=== PATIENT | female | born 1960 | race Caucasian/White ===

== ENCOUNTER 2021-07-19 12:57 | Outpatient (REF) | payer OTHER, SELFPAY ==
--- NOTE | ~2021-07-19 | MR_ITS ---
EXAMINATION: MR OF THE BRAIN WITHOUT CONTRAST CLINICAL INFORMATION: 61-year-old with MS. COMPARISON: 10/04/2017 MRI. TECHNIQUE: Multiplanar multisequence MR imaging of the brain was done without IV contrast. FINDINGS: Brain Volume: Mild diffuse generalized brain parenchymal volume loss similar in appearance to the previous study within the limitations of a qualitative assessment. 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 Brain and Meninges: DWI sequence demonstrates no restricted diffusion. Specifically, there is no evidence for acute or subacute cerebral ischemia or acute demyelination. Redemonstrated are multiple T2 hyperintense white matter lesions in the subcortical and deeper white matter of both cerebral hemispheres which are stable in appearance from previous exam. There is a 3 mm T2 hyperintense subcortical right frontal white matter lesion which is new and there are also small sub-3 mm right subcortical parietal and left corpus callosal white matter lesions which has developed since the previous exam. Confluent T2 hyperintensity in the deep periventricular white matter adjacent to the frontal horns and bodies of the lateral ventricles has progressed. No posterior fossa lesions are identified. No evidence for hemorrhage, hemosiderin staining or abnormal mineral deposition and no extra-axial fluid collections, space-occupying process or mass effect. Ventricles and Subarachnoid Spaces: The ventricular system and subarachnoid spaces are similar to the previous exam without hydrocephalus. Orbital Structures: The visualized orbital structures are grossly unremarkable within the limitations of the study. Vascular: Signal voids are noted in the visualized major intracranial vessels. Sinuses and Osseous Structures: Osseous marrow signal intensity appears grossly unremarkable. There is a 2.5 cm retention cyst along the floor of the left maxillary sinus stable in appearance. MR/MR head/brain wo con IMPRESSION: 1. Numerous T2 hyperintense white matter lesions in the cerebral hemispheres bilaterally with a few new lesions since the previous exam and progression of the periventricular confluent T2 hyperintensity since previous study. No restricted diffusion is seen. 2. Mild generalized diffuse brain parenchymal volume loss similar to the previous exam without hydrocephalus.
== END 2021-07-19 12:58 | disposition home or self-care (01) ==
LOC: HO.MRI 12:57
PROVIDERS: PCP Internal Medicine; Visit Provider Psychiatry & Neurology Neurology
DX: G35 Multiple sclerosis (principal)
CPT/HCPCS: 70551

== ENCOUNTER 2021-07-27 15:26 | Outpatient (REF) | payer OTHER, SELFPAY ==
[2021-07-27 16:03] LABS: MANUAL DIFF FLAG NO
[2021-07-27 16:53] LABS: Basophils Absolute Auto 0.1 X10*3/uL (0.0-0.2); Basophils Percent Auto 0.6 % (0-2); Eosinophils Absolute Auto 0.3 X10*3/uL (0.0-0.4); Eosinophils Percent Auto 2.6 % (0-4); Hematocrit 37.1 % (37.0-47.0); Imm Gran Abs Auto 0.05 X10*3/uL (0.00-0.03); Imm Gran Pct Auto 0.4 % (0.0-0.4); Lymphocytes Absolute Auto 1.6 X10*3/uL (1.2-4.9); Lymphocytes Percent Auto 12.4 % (20-40); Mean Corpuscular HGB Conc 32.3 g/dl (31.0-35.0); Mean Corpuscular Hemoglobin 28.3 pg (27.0-33.0); Mean Corpuscular Volume 87.5 fL (80.0-98.0); Mean Platelet Volume 12.4 fL (9.4-12.3); Monocytes Absolute Auto 0.6 X10*3/uL (0.1-1.2); Monocytes Percent Auto 4.9 % (2-11); Neutrophils Absolute Auto 10.1 x10*3/uL (2.0-8.3); Neutrophils Percent Auto 79.1 % (45-73); Platelet Count 339 X10*3/uL (160-400); Red Blood Count 4.24 X10*6/uL (4.20-5.50); Red Cell Distribution Width 13.1 % (11.0-16.0); White Blood Count 12.8 X10*3/uL (4.8-10.8)
[2021-07-27 17:18] LABS: Alanine Aminotransferase 12 U/L (0-31); Albumin Level 3.8 g/dL (3.5-5.0); Alkaline Phosphatase 114 U/L (39-117); Anion Gap 13 (12-20); Aspartate Amino Transferase 15 U/L (5-31); Bilirubin Direct < 0.2 mg/dL (0.0-0.5); Bilirubin Total 0.3 mg/dL (0.0-1.0); Blood Urea Nitrogen 17 mg/dL (9-16); Calcium 9.4 mg/dL (8.4-10.2); Carbon Dioxide 25 mmol/L (22-29); Chloride 104 mmol/L (96-108); Estimated Glomerular Filt Rate > 60; Glucose Random 89 mg/dL (60-115); Potassium 4.3 mmol/L (3.3-5.1); Sodium 138 mmol/L (135-145); Total Protein 6.9 g/dL (6.5-8.0)
[2021-07-27 18:18] LABS: Erythrocyte Sedimentation Rate 37 MM/HR (0-20)
[2021-07-28 13:36] LABS: Anti Nuclear Antibody Screen NEGATIVE (NEGATIVE)
[2021-08-01 01:52] LABS: JCV Antibody POSITIVE; JCV Index Value 2.29
== END 2021-07-27 15:27 | disposition home or self-care (01) ==
LOC: HO.LAB 15:26
PROVIDERS: PCP Internal Medicine; Visit Provider Psychiatry & Neurology Neurology
DX: G35 Multiple sclerosis (principal)
CPT/HCPCS: 36415; 80048; 80076; 85025; 85652; 86038; 86039; 86711

== ENCOUNTER 2021-08-08 12:56 | Outpatient (REF) | payer OTHER, SELFPAY | END 2021-08-08 12:57 | disposition home or self-care (01) | LOC: HO.MDS 12:56 | PROVIDERS: PCP Internal Medicine; Visit Provider Psychiatry & Neurology Neurology | DX: G35 Multiple sclerosis (principal) | CPT/HCPCS: 96365; J2930 ==

== ENCOUNTER 2021-08-09 13:06 | Outpatient (REF) | payer OTHER, SELFPAY | END 2021-08-09 13:07 | disposition home or self-care (01) | LOC: HO.MDS 13:06 | PROVIDERS: PCP Internal Medicine; Visit Provider Psychiatry & Neurology Neurology | DX: G35 Multiple sclerosis (principal) | CPT/HCPCS: 96365; J2930 ==

== ENCOUNTER 2021-08-10 12:41 | Outpatient (REF) | payer OTHER, SELFPAY | END 2021-08-10 12:42 | disposition home or self-care (01) | LOC: HO.MDS 12:41 | PROVIDERS: PCP Internal Medicine; Visit Provider Psychiatry & Neurology Neurology | DX: G35 Multiple sclerosis (principal) | CPT/HCPCS: 96365; J2930 ==

== ENCOUNTER 2021-10-03 11:33 | Outpatient (REF) | payer OTHER, SELFPAY | END 2021-10-03 11:34 | disposition home or self-care (01) | LOC: HO.LAB 11:33 | PROVIDERS: PCP Internal Medicine; Visit Provider Psychiatry & Neurology Neurology | DX: Z13.89 Encounter for screening for other disorder (principal) ==

== ENCOUNTER 2021-10-27 15:58 | Outpatient (REF) | payer OTHER, SELFPAY ==
[2021-10-27 16:07] LABS: MANUAL DIFF FLAG NO
[2021-10-27 16:59] LABS: Basophils Absolute Auto 0.1 X10*3/uL (0.0-0.2); Basophils Percent Auto 0.5 % (0-2); Eosinophils Absolute Auto 1.8 X10*3/uL (0.0-0.4); Eosinophils Percent Auto 18.7 % (0-4); Hematocrit 32.3 % (37.0-47.0); Hemoglobin 10.5 g/dl (12.0-16.0); Imm Gran Abs Auto 0.03 X10*3/uL (0.00-0.03); Imm Gran Pct Auto 0.3 % (0.0-0.4); Lymphocytes Absolute Auto 1.7 X10*3/uL (1.2-4.9); Lymphocytes Percent Auto 17.5 % (20-40); Mean Corpuscular HGB Conc 32.5 g/dl (31.0-35.0); Mean Corpuscular Hemoglobin 29.2 pg (27.0-33.0); Mean Platelet Volume 12.4 fL (9.4-12.3); Monocytes Absolute Auto 0.6 X10*3/uL (0.1-1.2); Monocytes Percent Auto 5.7 % (2-11); Neutrophils Absolute Auto 5.6 x10*3/uL (2.0-8.3); Neutrophils Percent Auto 57.3 % (45-73); Platelet Count 302 X10*3/uL (160-400); Red Blood Count 3.59 X10*6/uL (4.20-5.50); Red Cell Distribution Width 13.8 % (11.0-16.0); White Blood Count 9.8 X10*3/uL (4.8-10.8)
== END 2021-10-27 15:59 | disposition home or self-care (01) ==
LOC: HO.LAB 15:58
PROVIDERS: PCP Internal Medicine; Visit Provider Psychiatry & Neurology Neurology
DX: G35 Multiple sclerosis (principal)
CPT/HCPCS: 36415; 85025

== ENCOUNTER 2022-03-12 16:44 | Outpatient (REF) | payer OTHER, SELFPAY ==
[2022-03-12 16:57] LABS: MANUAL DIFF FLAG NO
[2022-03-12 17:10] LABS: Basophils Absolute Auto 0.1 X10*3/uL (0.0-0.2); Eosinophils Absolute Auto 0.4 X10*3/uL (0.0-0.4); Hematocrit 38.4 % (37.0-47.0); Hemoglobin 12.5 g/dl (12.0-16.0); Imm Gran Abs Auto 0.02 X10*3/uL (0.00-0.03); Imm Gran Pct Auto 0.2 % (0.0-0.4); Lymphocytes Absolute Auto 0.7 X10*3/uL (1.2-4.9); Lymphocytes Percent Auto 7.4 % (20-40); Mean Corpuscular HGB Conc 32.6 g/dl (31.0-35.0); Mean Corpuscular Hemoglobin 28.9 pg (27.0-33.0); Mean Corpuscular Volume 88.9 fL (80.0-98.0); Mean Platelet Volume 12.1 fL (9.4-12.3); Monocytes Absolute Auto 0.6 X10*3/uL (0.1-1.2); Monocytes Percent Auto 7.3 % (2-11); Neutrophils Percent Auto 80.1 % (45-73); Platelet Count 281 X10*3/uL (160-400); Red Blood Count 4.32 X10*6/uL (4.20-5.50); Red Cell Distribution Width 13.4 % (11.0-16.0); White Blood Count 8.7 X10*3/uL (4.8-10.8)
== END 2022-03-12 16:45 | disposition home or self-care (01) ==
LOC: HO.LAB 16:44
PROVIDERS: PCP Internal Medicine; Visit Provider Psychiatry & Neurology Neurology
DX: G35 Multiple sclerosis (principal)
CPT/HCPCS: 36415; 85025

== ENCOUNTER 2022-12-12 15:01 | Outpatient (REF) | payer OTHER, SELFPAY | END 2022-12-12 15:02 | disposition home or self-care (01) | LOC: HO.MDS 15:01 | PROVIDERS: Visit Provider Psychiatry & Neurology Neurology | DX: G35 Multiple sclerosis (principal) | CPT/HCPCS: 96365; J2930 ==

== ENCOUNTER 2022-12-13 15:05 | Outpatient (REF) | payer OTHER, SELFPAY | END 2022-12-13 15:06 | disposition home or self-care (01) | LOC: HO.MDS 15:05 | PROVIDERS: Visit Provider Psychiatry & Neurology Neurology | DX: G35 Multiple sclerosis (principal) | CPT/HCPCS: 96365; J2930 ==

== ENCOUNTER 2022-12-14 15:01 | Outpatient (REF) | payer OTHER, SELFPAY | END 2022-12-14 15:02 | disposition home or self-care (01) | LOC: HO.MDS 15:01 | PROVIDERS: Visit Provider Psychiatry & Neurology Neurology | DX: G35 Multiple sclerosis (principal) | CPT/HCPCS: 96365; J2930 ==

== ENCOUNTER 2023-01-16 08:30 | Emergency (ER) | payer OTHER, SELFPAY ==
[2023-01-16 08:41] VITALS: BP 187/76; PULSE 64; RESP 18; TEMP 36.1; O2SAT 96; BMI 31.6
--- NOTE | 2023-01-16 08:51 | ED_ITS ---
HPI - Headache General Chief Complaint: Headache Stated Complaint: Migraine/Nausea Time Seen by Provider: 01/16/23 08:48 Source: patient, RN notes reviewed and old records reviewed Mode of arrival: ambulatory History of Present Illness HPI Narrative: 62-year-old female with past medical history of MS, chronic migraines followed by Neurology, presenting to the ED complaining of persistent migraine headache x2 months. Patient admits she is followed by Dr. Gracia, has been on and off multiple medications with his assistance, admits currently only takes Motrin/Excedrin without relief, last took Excedrin around 05:00. Reports associated nausea and puffy eyes. Denies vision change/loss, head injury/trauma, vomiting, neck/back pain, numbness/tingling. Denies taking anticoagulation. MD elicited complaint: headache Related Data Previous Rx's Medication Instructions Recorded ondansetron 4 mg disintegrating 4 mg PO Q8H PRN nausea and 01/16/23 tablet vomiting #10 tabs Allergies Allergy/AdvReac Type Severity Reaction Status Date / Time oxycodone Allergy Nausea Verified 01/16/23 08:45 sulfamethoxazole Allergy Hives Verified 01/16/23 08:45 [From Bactrim] trimethoprim [From Bactrim] Allergy Hives Verified 01/16/23 08:45 Review of Systems Review of Systems: Constitutional: No Fever, No Chills, No Fatigue, No Malaise ENT/Mouth: No Ear Pain, No sore throat, No Rhinorrhea, No Swallowing Difficulty Eyes: No Eye Pain, No Swelling, No Redness, No Vision Changes Cardiovascular: No Chest Pain, No SOB, No Edema, No Palpitations Respiratory: No Cough, No Sputum, No Dyspnea Gastrointestinal: No Nausea, No Vomiting, No Diarrhea, No Constipation, No Abdominal pain Musculoskeletal: No joint pain, No Myalgias, No Joint Swelling Skin: No Skin Lesions, No rash Neuro: No Weakness, No Numbness, No Paresthesias, No Loss of Consciousness, + lightheaded, + Headache Yes all other systems are reviewed and are negative Constitutional: Constitutional: Reports as per HPI Neurologic: Denies Abnormal speech present PMFSH Past Medical History Attestation statement: The following information was validated with the patient. Source: old records reviewed Social History Social History Advance Directives: No Physical Exam Vital Signs: Vital Signs: Last Vital Signs Temp 98.3 F 01/16/23 10:53 Pulse 67 01/16/23 10:53 Resp 16 01/16/23 10:53 BP 171/80 H 01/16/23 10:53 Pulse Ox 98 01/16/23 10:53 O2 Del Method Room Air 01/16/23 10:53 BMI result Body Mass Index 31.6 Const: General: cooperative, healthy appearing, no acute distress, alert and awake Orientation/consciousness: patient oriented x3 Limitations: no limitations HEENT: Head: Yes normal to inspection and Yes atraumatic Ears: hearing radames sly normal bilaterally General nose exam: Normal external nose present Face and sinus: Yes normal facial exam Throat: Yes posterior oropharynx normal, Yes tonsils normal, Yes uvula midline, No uvula laterally displaced and No uvular edema Eyes: General: appearance normal, both eyes and all related structures EOM: EOMs intact bilaterally Neck: Neck: Yes normal visual inspection and Yes no meningeal signs Resp: Effort & Inspection: normal respiratory effort and no respiratory distress Auscultation: clear to auscultation bilaterally Cardio: Rate: regular rate Heart sounds: S1 normal heart sound present and S2 normal heart sound present GI: Inspection: Yes normal to inspection Palpation (GI): Soft to palpation, nontender, no guarding and not rigid Skin: Rashes: no rashes Wounds: no wounds Neuro: General: patient oriented x3, gait normal, tone normal, moves all extremities, no meningeal signs, no focal motor deficits and CN's II-XI intact bilaterally Cranial nerves: Yes CN's II-XII intact bilaterally and Yes Bilaterally intact EOM present Cognition (Neuro): normal cognition Speech: No Abnormal speech present Gait exam (Neuro): Normal gait present Motor exam (neuro): 5/5 motor strength present throughout, Pronator motor function not present and no tremor noted Coordination: [id number] test normal Romberg Test: Negative Extrem: General: Yes normal to inspection Course Course Course Narrative: -1026--labs reassuring, no leukocytosis > patient reports minimal symptomatic improvement after Toradol/Reglan and Benadryl, will give magnesium, Solu-Medrol, and Fioricet and re-evaluate -1141--on re-evaluation patient sitting comfortably in stretcher, reports symptomatic improvement, requesting discharge. Admits follow-up with Neurology in February, recommended to call to make an earlier appointment Results discussed with patient including worrisome signs and symptoms and strict return precautions, and when to return to the emergency department. They verbalized understanding and feel safe for discharge at this time. Medications Administered Discontinued Medications Generic Name Dose Route Start Last Admin Trade Name Jailyn PRN Reason Stop Dose Admin Acetaminophen/Butalbital/Caffeine 2 tab 01/16/23 10:42 01/16/23 10:57 Butalb/Acetamin/Caff 50/325/40 Tablet PO 01/16/23 10:43 2 tab ONCE ONE Administration Diphenhydramine HCl 25 mg 01/16/23 09:03 01/16/23 09:27 Diphenhydramine Hcl 50 Mg/Ml Vial IVPUSH 01/16/23 09:04 25 mg ONCE ONE Administration Sodium Chloride 1,000 mls @ 999 mls/hr 01/16/23 09:15 01/16/23 10:46 Ns IV 01/16/23 10:15 Infused .Q1H1M KAITLYN Infusion Magnesium Sulfate 2 gm in 50 mls @ 25 mls/hr 01/16/23 10:42 01/16/23 10:56 Magnesium Sulfate/H2o IV 01/16/23 12:41 25 mls/hr ONCE ONE Administration Ketorolac Tromethamine 15 mg 01/16/23 09:03 01/16/23 09:27 Ketorolac Tromethamine 15 Mg/Ml Vial IVPUSH 01/16/23 09:04 15 mg ONCE ONE Administration Methylprednisolone Sodium Succinate 125 mg 01/16/23 10:42 01/16/23 10:56 Methylprednisolone Sod Succ 125 Mg/2 Ml Vial IVPUSH 01/16/23 10:43 125 mg ONCE ONE Administration Metoclopramide HCl 10 mg 01/16/23 09:03 01/16/23 09:27 Metoclopramide Hcl 10 Mg/2 Ml Vial IVPUSH 01/16/23 09:04 10 mg ONCE ONE Administration Medical Decision Making Medical Decision Making MDM Narrative: 62-year-old female with past medical history of MS, chronic migraines followed by Neurology, presenting to the ED complaining of persistent migraine headache x2 months. On exam hypertensive, NAD, nontoxic appearing, no focal neuro deficits, ambulating with steady gait, non meningeal. Concern for acute on chronic migraine headache. Lower suspicion for CVA/TIA, SAH, cervical dissection, meningitis/encephalitis, mass. Rule out metabolic abnormalities Plan: Labs, UA, IVF, Reglan/Toradol, Benadryl, re-evaluate Please refer to course for remaining clinical decision making, interpretation of labs/imaging results, and discussions with consultants and/or family members. Differential Diagnosis Differential Diagnoses: The differential diagnosis associated with the presentation includes As above Admission/Observation Consideration of admission/observation: Escalation of care including admission/observation considered Lab Data MDM Lab Attestation statement: I reviewed the patient's lab results. 01/16/23 09:20 01/16/23 09:20 Labs: Lab Results 01/16/23 01/16/23 Range/Units 09:20 09:20 WBC 8.5 (4.8-10.8) X10*3/uL RBC 4.41 (4.20-5.50) X10*6/uL Hgb 12.6 (12.0-16.0) g/dl Hct 39.3 (37.0-47.0) % MCV 89.1 (80.0-98.0) fL MCH 28.6 (27.0-33.0) pg MCHC 32.1 (31.0-35.0) g/dl RDW 13.9 (11.0-16.0) % Plt Count 297 (160-400) X10*3/uL MPV 11.9 (9.4-12.3) fL Immature Gran % (Auto) 0.5 H (0.0-0.4) % Neut % (Auto) 77.8 H (45-73) % Lymph % (Auto) 11.5 L (20-40) % [place] % (Auto) 6.0 (2-11) % Eos % (Auto) 3.5 (0-4) % Baso % (Auto) 0.7 (0-2) % Lymph # (Auto) 1.0 L (1.2-4.9) X10*3/uL [place] # (Auto) 0.5 (0.1-1.2) X10*3/uL Eos # (Auto) 0.3 (0.0-0.4) X10*3/uL Baso # (Auto) 0.1 (0.0-0.2) X10*3/uL Abs Immat Gran (auto) 0.04 H (0.00-0.03) X10*3/uL Absolute Neuts (auto) 6.6 (2.0-8.3) x10*3/uL Absolute Nucleated RBC 0.000 (0.0-0.012) X10*3/uL Nucleated RBC % (auto) 0.0 (0.0-0.2) /100WBC Sodium 141 (135-145) mmol/L Potassium 4.0 (3.3-5.1) mmol/L Chloride 107 (96-108) mmol/L Carbon Dioxide 22 (22-29) mmol/L Anion Gap 16 (12-20) BUN 12 (9-16) mg/dL Creatinine 0.78 (0.5-1.4) mg/dL Estim Creat Clear Calc 80.0 Estimated GFR > 60 Random Glucose 86 (60-115) mg/dL Calcium 9.4 (8.4-10.2) mg/dL Magnesium 2.0 (1.6-2.6) mg/dL Total Bilirubin 0.2 (0.0-1.0) mg/dL Direct Bilirubin < 0.2 (0.0-0.5) mg/dL AST 33 H (5-31) U/L ALT 24 (0-31) U/L Alkaline Phosphatase 116 (39-117) U/L Total Protein 7.4 (6.5-8.0) g/dL Albumin 3.9 (3.5-5.0) g/dL Radiology Impression Discussion of test interpretation with radiology: I have reviewed the radiologist's reading. External Record Review External record reviewed: Inpatient record, Office record, Outpatient record, Prior outpatient labs, Prior outpatient radiology, Primary care record and Outside ED record Tests considered The following testing was considered but not selected: As above Prescription Management I considered prescription management with: Pain Medication Chronic Conditions Patient?s care impacted by: Other (MS) Discharge Plan Discharge Clinical Impression: Migraine Patient Disposition: Home, Self-Care Instructions: Migraine Headache (ED) Additional Instructions: Your blood work is reassuring Rest Stay hydrated Continues to take home medications Follow-up with her neurologist, called get a sooner appointment If symptoms persist or worsen, headache becomes unbearable, persistent nausea vomiting return to the ED Zofran as an antinausea medication, take as needed Prescriptions: New ondansetron 4 mg tablet,disintegrating 4 mg PO Q8H PRN (Reason: nausea and vomiting) Qty: 10 0RF Referrals: Jesusita Gracia MD [Physician] - Stand Alone Forms: Work/School Release Interventions: ED Discharge Assessment Last Done: 01/16/23 11:53 Discharge Date/Time: 01/16/23 11:54
[2023-01-16 09:25] LABS: MANUAL DIFF FLAG NO
[2023-01-16 09:27] LABS: Basophils Absolute Auto 0.1 X10*3/uL (0.0-0.2); Basophils Percent Auto 0.7 % (0-2); Eosinophils Absolute Auto 0.3 X10*3/uL (0.0-0.4); Eosinophils Percent Auto 3.5 % (0-4); Hematocrit 39.3 % (37.0-47.0); Hemoglobin 12.6 g/dl (12.0-16.0); Imm Gran Abs Auto 0.04 X10*3/uL (0.00-0.03); Imm Gran Pct Auto 0.5 % (0.0-0.4); Lymphocytes Percent Auto 11.5 % (20-40); Mean Corpuscular HGB Conc 32.1 g/dl (31.0-35.0); Mean Corpuscular Hemoglobin 28.6 pg (27.0-33.0); Mean Corpuscular Volume 89.1 fL (80.0-98.0); Mean Platelet Volume 11.9 fL (9.4-12.3); Monocytes Absolute Auto 0.5 X10*3/uL (0.1-1.2); Neutrophils Absolute Auto 6.6 x10*3/uL (2.0-8.3); Neutrophils Percent Auto 77.8 % (45-73); Platelet Count 297 X10*3/uL (160-400); Red Blood Count 4.41 X10*6/uL (4.20-5.50); Red Cell Distribution Width 13.9 % (11.0-16.0); White Blood Count 8.5 X10*3/uL (4.8-10.8)
[2023-01-16] MEDS: Ketorolac Tromethamine 15 MG/ML VIAL IVPUSH (09:27)
[2023-01-16] MEDS: diphenhydrAMINE HCL 50 MG/ML VIAL 25 MG IVPUSH (09:27)
[2023-01-16] MEDS: 0.9 % Sodium Chloride 1,000 ML 999 ML IV (09:27)
[2023-01-16] MEDS: Metoclopramide HCl 10 MG/2 ML VIAL IVPUSH (09:27)
--- NOTE | 2023-01-16 09:38 | PC.NURSE ---
alert and oriented, respirations even and unlabored. resting quietly in room, complaining of headache over last month. also reporting nausea. iv established, labs drawn and sent. medicated per the aug. ambulated with steady gait to bathroom. fluids running at this time, call coker within reach.
[2023-01-16 09:58] LABS: Alanine Aminotransferase 24 U/L (0-31); Albumin Level 3.9 g/dL (3.5-5.0); Alkaline Phosphatase 116 U/L (39-117); Anion Gap 16 (12-20); Aspartate Amino Transferase 33 U/L (5-31); Bilirubin Direct < 0.2 mg/dL (0.0-0.5); Bilirubin Total 0.2 mg/dL (0.0-1.0); Blood Urea Nitrogen 12 mg/dL (9-16); Calcium 9.4 mg/dL (8.4-10.2); Carbon Dioxide 22 mmol/L (22-29); Chloride 107 mmol/L (96-108); Estimated Glomerular Filt Rate > 60; Glucose Random 86 mg/dL (60-115); Sodium 141 mmol/L (135-145); Total Protein 7.4 g/dL (6.5-8.0)
[2023-01-16 10:53] VITALS: BP 171/80; PULSE 67; RESP 16; TEMP 36.8; O2SAT 98
[2023-01-16] MEDS: methylPREDNISolone Sod Succ 125 MG/2 ML VIAL IVPUSH (10:56)
[2023-01-16] MEDS: Magnesium Sulfate/H2O 2 GM/50 ML PIGGYBACK IV (10:56)
[2023-01-16] MEDS: Butalb/Acetamin/Caff 50/325/40 TABLET 2 TAB PO (10:57)
== END 2023-01-16 11:54 | disposition home or self-care (01) ==
PROVIDERS: Physician Assistant; Emergency Provider Student in an Organized Health Care Education/Training Program; PCP Internal Medicine
DX: G43.909 Migraine, unspecified, not intractable, without status migrainosus (principal); R11.2 Nausea with vomiting, unspecified; Z79.899 Other long term (current) drug therapy
CPT/HCPCS: 36415; 80048; 80076; 83735; 85025; 96361; 96374; 96375; 99284; 99285; J1200; J1885; J2765; J2930; J3475

== ENCOUNTER 2023-10-17 05:17 | Emergency (ER) | payer OTHER, SELFPAY ==
--- NOTE | ~2023-10-17 | XR_ITS ---
EXAMINATION: XR CHEST CLINICAL INFORMATION: Shortness of breath, cough COMPARISON: None available. TECHNIQUE: Frontal view of the chest was obtained. FINDINGS: The lungs are clear with no focal consolidation. No evidence of pneumothorax, pulmonary edema, or pleural effusions. The cardiomediastinal silhouette is unremarkable. No acute osseous findings. XR/XR chest 1V IMPRESSION: No acute cardiopulmonary findings.
[2023-10-17 05:20] VITALS: BP 154/86; PULSE 75; RESP 24; TEMP 36.7; O2SAT 93; BMI 31.6
--- NOTE | 2023-10-17 05:23 | ECG_ITS ---
Test Reason : dyspena Blood Pressure : / mmHG Vent. Rate : 067 BPM Atrial Rate : 067 BPM P-R Int : 142 ms QRS Dur : 074 ms QT Int : 394 ms P-R-T Axes : 041 065 052 degrees QTc Int : 416 ms Normal sinus rhythm Normal ECG No previous ECGs available Referred By: Generic ED Physician Electronically Signed By:Kristian Lezama
[2023-10-17 05:50] LABS: Basophils Percent Auto 0.2 % (0-2); Eosinophils Percent Auto 0.1 % (0-4); Hematocrit 41.2 % (37.0-47.0); Hemoglobin 13.7 g/dl (12.0-16.0); Imm Gran Abs Auto 0.07 X10*3/uL (0.00-0.03); Imm Gran Pct Auto 0.5 % (0.0-0.4); Lymphocytes Absolute Auto 1.2 X10*3/uL (1.2-4.9); Lymphocytes Percent Auto 9.3 % (20-40); MANUAL DIFF FLAG NO; Mean Corpuscular HGB Conc 33.3 g/dl (31.0-35.0); Mean Corpuscular Hemoglobin 29.5 pg (27.0-33.0); Mean Corpuscular Volume 88.8 fL (80.0-98.0); Mean Platelet Volume 11.7 fL (9.4-12.3); Monocytes Absolute Auto 0.6 X10*3/uL (0.1-1.2); Monocytes Percent Auto 4.2 % (2-11); Neutrophils Absolute Auto 11.3 x10*3/uL (2.0-8.3); Neutrophils Percent Auto 85.7 % (45-73); Platelet Count 304 X10*3/uL (160-400); Red Blood Count 4.64 X10*6/uL (4.20-5.50); Red Cell Distribution Width 13.1 % (11.0-16.0); White Blood Count 13.2 X10*3/uL (4.8-10.8)
[2023-10-17 06:03] LABS: IDNOW Serial# 08D9AD1C; Influenza A Negative (Negative); Influenza B2 Negative (Negative)
[2023-10-17 06:04] LABS: COVID-19 Test Negative (Negative); IDNOW Serial# 152EDE1D
[2023-10-17 06:09] LABS: Anion Gap 15 (12-20); Blood Urea Nitrogen 24 mg/dL (9-16); Calcium 9.6 mg/dL (8.4-10.2); Carbon Dioxide 23 mmol/L (22-29); Chloride 105 mmol/L (96-108); Creatinine Clr Calc Pharmacy 73.3; Estimated Glomerular Filt Rate > 60; Glucose Random 104 mg/dL (60-115); Potassium 4.5 mmol/L (3.3-5.1); Sodium 138 mmol/L (135-145)
[2023-10-17 06:10] LABS: Troponin-I High Sensitivity 2.9 ng/L (<3.5-17.0)
[2023-10-17 06:22] VITALS: BP 171/65; PULSE 63; RESP 18; TEMP 36.6; O2SAT 94
--- NOTE | 2023-10-17 06:24 | PC.NURSE ---
a&ox4. vss and up to date aside from being slightly hypertensive. pt presents to ED w/ UR sx x last . hx asthma/copd. RA baseline w/o difficulty. pt states using inhalers/nebulizers at home w/o relief. recently prescribed prednisone at urgent care. pt states sx have since then increased. pt c/o pain w/ inspiration as well as with coughing. rating it a 3/10. audible wheezing noted. no sob/wob noted. pt positioned upright to promote patent airway. pt able to speak in full clear sentences w/o difficulty. pt waiting for chest xray results as well as to see an ED provider. plan of care ongoing. call coker placed within reach.
--- NOTE | 2023-10-17 07:42 | ED_ITS ---
HPI - General Adult General Chief complaint: Dyspnea Stated complaint: Sob Time Seen by Provider: 10/17/23 07:31 History of Present Illness HPI narrative: The patient is a 63-year-old woman with a history of COPD and asthma who says that she has been feeling unwell for about 8 days. Three days ago she went to an urgent care center and was placed on a course of prednisone. Took 40 mg of prednisone daily for the last 3 days but continues to feel short of breath and wheezy. She has not had a fever although she has felt hot. She has been using her inhalers and her nebulizer machine at home without significant improvement. She thinks she is still wheezing and short of breath. She decided to come to the emergency room because of her persistent symptoms this morning. She has not yet taken her morning dose of prednisone. No nausea or vomiting. No pain or swelling in her legs Related Data Previous Rx's ?Medication ?Instructions ?Recorded ondansetron 4 mg disintegrating 4 mg PO Q8H PRN nausea and 01/16/23 tablet vomiting #10 tabs azithromycin 250 mg tablet 250 mg PO DAILY 4 days #4 tabs 10/17/23 prednisone 20 mg tablet 20 mg PO DAILY #12 tabs 10/17/23 Allergies Allergy/AdvReac Type Severity Reaction Status Date / Time oxycodone Allergy Nausea Verified 10/17/23 05:22 sulfamethoxazole Allergy Hives Verified 10/17/23 05:22 [From Bactrim] trimethoprim [From Bactrim] Allergy Hives Verified 10/17/23 05:22 Review of Systems 2 Review of Systems: Yes all other systems are reviewed and are negative [facility] Social History Social History Smoked in Last 30 Days: No Use of substances other than those prescribed or required for medical reasons: No Advance Directives: No Advance Directives Information Provided: Yes Do you have a plan to hurt others: No Plan Patient : No Physical Exam ED Vital Signs: Vital Signs - 24 hr 10/17/23 05:20 10/17/23 06:22 10/17/23 08:17 Temperature 98.0 F 97.9 F Pulse Rate 75 63 65 Respiratory Rate 24 H 18 20 Blood Pressure 154/86 H 171/65 H 152/81 H Pulse Oximetry 93 94 96 Oxygen Delivery Method Room Air Room Air Room Air BMI result Body Mass Index 31.6 Const Other: The patient is awake, alert, pleasant, cooperative. She does not appear in obvious acute distress HENMT Other: Face is symmetrical, mucous membranes moist. Eyes Other: Pupils are round equal, conjunctivae are clear Neck Other: No JVD Resp Other: Inspiratory and expiratory wheezes bilaterally. No gross increased work of breathing Cardio Rate: regular rate Rhythm: regular rhythm Heart sounds: S1 normal heart sound present and S2 normal heart sound present GI Other: Abdomen is soft and nontender Skin Other: Skin is dry and unremarkable. Neuro Other: Awake, alert, pleasant, cooperative. Nontoxic demeanor. Normal mental status. Speech is clear. Face symmetrical. Moving her extremities normally. Grossly neurologically intact. Extrem Other: No calf swelling or tenderness. No pitting edema. No asymmetry Medications Administered Discontinued Medications Generic Name Dose Route Start Last Admin Trade Name Freq PRN Reason Stop Dose Admin Azithromycin 500 mg 10/17/23 07:41 10/17/23 08:14 Azithromycin 500 Mg Tablet PO 10/17/23 07:42 500 mg ONCE ONE Administration Albuterol Sulfate 2.5 mg/ 0 mg 10/17/23 08:06 10/17/23 08:12 Albuterol/Ipratropium 3 ml INHALE 10/17/23 08:07 1 dose ONCE ONE Administration Prednisone 60 mg 10/17/23 07:41 10/17/23 08:14 Prednisone 20 Mg Tablet PO 10/17/23 07:42 60 mg ONCE ONE Administration Medical Decision Making Medical Decision Making [facility] Narrative: The patient is a 63-year-old woman with a history of asthma and COPD who has been having trouble breathing for the last 8 days. She has had associated cough and wheezing. She has been on 40 mg of prednisone for 3 days without significant improvement. Here her her chest x-ray is clear. She has wheezes on exam. She has no edema on her legs. No calf swelling or tenderness or asymmetry. No signs of DVT. She was treated with 5 mg of albuterol and 0.5 mg of ipratropium with improvement in her symptoms. She will be discharged on a course of 3 days of 60 mg of prednisone and 3 days of 40 mg of prednisone as well as a prescription to finish the course of azithromycin. Lab Data 10/17/23 05:43 10/17/23 05:43 Labs: Lab Results 10/17/23 Range/Units 05:43 WBC 13.2 H (4.8-10.8) X10*3/uL RBC 4.64 (4.20-5.50) X10*6/uL Hgb 13.7 (12.0-16.0) g/dl Hct 41.2 (37.0-47.0) % MCV 88.8 (80.0-98.0) fL MCH 29.5 (27.0-33.0) pg MCHC 33.3 (31.0-35.0) g/dl RDW 13.1 (11.0-16.0) % Plt Count 304 (160-400) X10*3/uL MPV 11.7 (9.4-12.3) fL Immature Gran % (Auto) 0.5 H (0.0-0.4) % Neut % (Auto) 85.7 H (45-73) % Lymph % (Auto) 9.3 L (20-40) % [place] % (Auto) 4.2 (2-11) % Eos % (Auto) 0.1 (0-4) % Baso % (Auto) 0.2 (0-2) % Lymph # (Auto) 1.2 (1.2-4.9) X10*3/uL [place] # (Auto) 0.6 (0.1-1.2) X10*3/uL Eos # (Auto) 0.0 (0.0-0.4) X10*3/uL Baso # (Auto) 0.0 (0.0-0.2) X10*3/uL Abs Immat Gran (auto) 0.07 H (0.00-0.03) X10*3/uL Absolute Neuts (auto) 11.3 H (2.0-8.3) x10*3/uL Absolute Nucleated RBC 0.000 (0.0-0.012) X10*3/uL Nucleated RBC % (auto) 0.0 (0.0-0.2) /100WBC Sodium 138 (135-145) mmol/L Potassium 4.5 (3.3-5.1) mmol/L Chloride 105 (96-108) mmol/L Carbon Dioxide 23 (22-29) mmol/L Anion Gap 15 (12-20) BUN 24 H (9-16) mg/dL Creatinine 0.84 (0.5-1.4) mg/dL Estim Creat Clear Calc 73.3 Estimated GFR > 60 Random Glucose 104 (60-115) mg/dL Calcium 9.6 (8.4-10.2) mg/dL Troponin I High Sens 2.9 (<3.5-17.0) ng/L B-Natriuretic Peptide 175 H (<100) pg/mL COVID-19 ([facility]ORGAN) Negative (Negative) COVID-19 Clin Com See Note Influenza Type A (ISI) Negative (Negative) Influenza Type B (ISI) Negative (Negative) Influenza A & B Note See Note Independent Interpretation I performed an independent interpretation of an: EKG Interpretation: EKG at 05:32 shows normal sinus rhythm at 67 beats per minute. Unremarkable EKG Discharge Plan Discharge Clinical Impression: Acute exacerbation of chronic obstructive airways disease Patient Disposition: Home, Self-Care Additional Instructions: Please continue to use your albuterol nebulizers and inhalers at home every 4 hours as needed. I have sent prescriptions for the antibiotic azithromycin to your pharmacy and for additional prednisone to your pharmacy. Next dose of both of these medications is tomorrow. Please contact your regular doctor's office to make a prompt follow-up appointment to discuss how you are doing. Return to the emergency room if significantly worse. Prescriptions: New azithromycin 250 mg tablet 250 mg PO DAILY 4 Days Qty: 4 0RF Rx Instructions: start on day 2 of therapy prednisone 20 mg tablet 20 mg PO DAILY Qty: 12 0RF Rx Instructions: Take 3 tablets by mouth daily for 2 days then 2 tablets daily by mouth for 3 days. No Action ondansetron 4 mg tablet,disintegrating 4 mg PO Q8H PRN (Reason: nausea and vomiting) Qty: 10 0RF Referrals: Pablo Resendiz III, MD [Primary Care Provider] - (Asthma/COPD) Stand Alone Forms: Work/School Release Print Language: Icelandic
[2023-10-17] MEDS: Albuterol Sulfate 2.5 MG, Albuterol/Iprat 2.5/0.5MG 3 ML 3 ML INHALE (08:12)
[2023-10-17] MEDS: Azithromycin 500 MG TABLET PO (08:14)
[2023-10-17] MEDS: predniSONE 20 MG TABLET 60 MG PO (08:14)
[2023-10-17 08:17] VITALS: BP 152/81; PULSE 65; RESP 20; O2SAT 96
--- NOTE | 2023-10-17 08:20 | PC.NURSE ---
pt is alert and oriented, skin pwd, respirations even and unlabored, ls slight wheezing on the right lower lobe, denies pain at this time, vs stable
[2023-10-17 08:24] LABS: B Type Natriuretic Peptide 175 pg/mL (<100)
[2023-10-17 09:47] VITALS: BP 177/91; PULSE 74; RESP 18; TEMP -17.7; TEMP 0; O2SAT 95
== END 2023-10-17 09:49 | disposition home or self-care (01) ==
PROVIDERS: Emergency Provider Emergency Medicine; PCP Internal Medicine
DX: J44.1 Chronic obstructive pulmonary disease with (acute) exacerbation (principal); R06.02 Shortness of breath; Z11.52 Encounter for screening for COVID-19; Z79.899 Other long term (current) drug therapy
CPT/HCPCS: 36415; 71045; 80048; 83880; 84484; 85025; 87502; 87635; 93005; 99284; 99285

== ENCOUNTER → 2023-10-17 05:23 | Outpatient (BNV) | payer OTHER, SELFPAY | PROVIDERS: Emergency Provider Emergency Medicine; PCP Internal Medicine; Visit Provider Internal Medicine Cardiovascular Disease | DX: R06.00 Dyspnea, unspecified (principal) | CPT/HCPCS: 93010 ==

== ENCOUNTER 2024-07-29 18:50 | Outpatient (REF) | payer MEDICARE, MEDICAID, SELFPAY ==
--- NOTE | ~2024-07-29 | MR_ITS ---
CLINICAL HISTORY: MS MR Brain without gadolinium Comparison: MR - MRI [facility] [id number] - 10/04/17 10:01 EDT Findings: No restricted diffusion. Mild diffuse cerebral volume loss. Mild degree of patchy high FLAIR signal within the periventricular and subcortical white matter. No intracranial mass or hemorrhage. No midline shift. No hydrocephalus. Vascular flow voids are intact. The orbits are normal. The sinuses and mastoid air cells are clear. No focal bone lesion. IMPRESSION: Unremarkable brain MRI. This document has been electronically signed by: Ryan Sparks MD on 07/30/2024 14:36:18
--- OUTSIDE RECORDS SUMMARY | 2024-07-29 18:52 | XMS_ITS | Clinical Summary ---
[facility] Address [address] [id number] Care Team Providers Care Race Steward Name Role Phone Heraclio Gold MD Primary Care Provider [phone] Allergies Active Allergy Reactions Criticality Noted Date Comments Sulfamethoxazole-Trimethoprim Other (See Comments) High 08/11/2013 Medications Medication Sig Dispensed Refills Start Date End Date Status FLUoxetine (PROzac) 20 MG capsule Take 20 mg by mouth 3 (three) times a day. 0 11/22/2019 Active estradiol (ESTRACE) 2 MG tablet TAKE 1 TABLET (2 MG) BY ORAL ROUTE ONCE DAILY FOR 30 DAYS FOR 30 DAYS 0 01/11/2020 Active propranolol (INDERAL) 60 MG tablet Take 60 mg by mouth 3 (three) times a day. 0 Active Family History Medical History Relation Name Comments Hyperlipidemia Father Hypertension Father Relation Name Status Comments Father Social History Tobacco Use Types Packs/Day Years Used Date Smoking Tobacco: Former Cigarettes Q uit: 2006 Smokeless Tobacco: Never Alcohol Use Standard Drinks/Week Comments No 0 (1 standard drink = 0.6 oz pur e alcohol) Sex and Gender Information Value Date Recorded Sex Assigned at Not on file Gender Identity Not on file Sexual Orientation Not on file Job Start Date Occupation Industry Not on file Not on file Not on file Last Filed Vital Signs Vital Sign Reading Time Taken Comments Blood Pressure - - Pulse - - Temperature - - Respiratory Rate - - Oxygen Saturation - - Inhaled Oxygen Concentration - - Weight 86.2 kg (190 lb) 01/18/2020 2:08 PM EDT Height 165.1 cm (5' 5 ) 01/18/2020 2:08 PM EDT Body Mass Index 31.62 01/18/2020 2:08 PM EDT Plan of Treatment Health Maintenance Due Date Last Done Comments Hepatitis C Screening 1960 COVID-19 Vaccine (#1) 1959 Depression Screening 1971 BMI Counseling 1977 Preventative Health Evaluation 1977 DTap / Tdap / Td (1 - Tdap) 1978 Cervical Cancer Screening (Pap Smear) 02/18/1980 Colon Cancer Screening (Colonoscopy) 02/18/2004 Breast Cancer Screening (Mammogram) 2009 Shingrix-Zoster Vaccine (1 of 2) 2009 Influenza Vaccine (#1) 2024 8, 03/29/2014, 03/24/2010, Additional history exists Fall Risk Assessment 02/18/2024 Osteoporosis Screening (DEXA Scan) 02/18/2024 Pneumococcal Vaccine (2 of 2 - PCV) 02/18/2024 12/04/2012 RSV Adult > 60+ Yrs or (1 - 1-dose 75+ series) 2034 Pneumococcal Vaccine Aged Out 12/04/2012 No long er eligible based on patient's age to complete this topic Hepatitis B Vaccines Aged Out No long er eligible based on patient's age to complete this topic RSV Ped < 20 months Aged Out No longe r eligible based on patient's age to complete this topic Care Teams Race Steward Relationship Specialty Start Date End Date Heraclio Gold MD [address] [place] [address] [phone] PCP - General Internal Medicine 07/07/18
--- OUTSIDE RECORDS SUMMARY | 2024-07-29 18:52 | XMS_ITS | Clinical Summary ---
Author Organization [facility] Address [address] [place] [address] Phone Care Team Providers Care Salmon Troll Fisher Name Role Phone Pablo Resendiz MD Primary Care Provider [phone] Allergies Active Allergy Reactions Criticality Noted Date Comments Cephalexin Monohydrate 09/06/2005 Lisinopril 08/01/2021 Throat Clearing Oxycodone Hcl Itching,Nausea And Vomiting Medium 04/03/2007 [facility] 08/11/2013 Medications albuterol 2.5 mg /3 mL (0.083 %) nebulizer solution Take 1 Vial by nebulization every 4 hours as needed for Wheezing or Shortness of Breath (EMERGENCY USE ONLY). 06/13/19 24 Active albuterol HFA (Ventolin HFA) 90 mcg/actuation inhaler INHALE 2 PUFFS INTO THE LUNGS EVERY 4 HOURS NEEDED FOR COUGH OR WHEEZING. 01/30/20 24 Active aluminum chloride (Drysol Dab-O-Matic) 20 % external solution APPLY TOPICALLY TO AFFECTED AREA EVERY DAY 10/17/19 24 Active butalbital-ac etaminophen-c affeine (FIORICET, ESGIC) 50-325-40 mg per tablet TAKE 2 TABLETS BY MOUTH EVERY DAY NEEDED FOR HEADACHE 01/12/20 23 Active colestipoL (COLESTID) 1 gram tablet TAKE 1 TABLET BY MOUTH FOUR TIMES A DAY 03/06/20 24 Active estradioL (ESTRACE) 2 mg tablet Take 2 mg by mouth daily. Active hyoscyamine (ANASPAZ,LEVS IN) 0.125 mg tablet TAKE 1 TABLET BY MOUTH 3 TIMES DAILY NEEDED FOR CRAMPING OR DIARRHEA 02/18/20 24 Active lidocaine (LIDODERM) 5 % patch APPLY TOPICALLY TO AFFECTED AREA EVERY DAY REMOVE BEFORE BEDTIME 05/22/20 23 Active montelukast (SINGULAIR) 10 mg tablet Take 1 Tablet by mouth at bedtime. 03/09/20 24 Active pregabalin (LYRICA) 150 mg capsule TAKE 1 CAPSULE BY MOUTH TWICE A DAY 11/18/19 24 Active propranoloL (INDERAL) 20 mg tablet TAKE 1 TABLET BY MOUTH TWICE A DAY FOR 30 DAYS 11/18/19 23 Active SUMAtriptan (IMITREX) 50 mg tablet TAKE 1 TABLET AT LEAST 2 HOURS BETWEEN DOSES NEEDED ORALLY ONCE A DAY 30 DAYS 06/05/20 23 Active topiramate (TOPAMAX) 50 mg tablet Take 1 tablet (50 mg total) by mouth at bedtime. 03/14/20 23 Active amitriptyline (ELAVIL) 25 mg tablet Take 1 tablet (25 mg total) by mouth at bedtime. 30 each 5 05/24/20 24 025 Active ALPRAZolam (XANAX) 1 mg tablet Take 1 tablet (1 mg total) by mouth at bedtime as needed for anxiety. 28 tablet 06/26/19 25 Active tiZANidine (ZANAFLEX) 4 mg tablet TAKE 1 TABLET BY MOUTH AT BEDTIME NEEDED FOR MUSCLE SPASMS. 90 tablet 1 07/15/19 25 Active hydroCHLOROth iazide (MICROZIDE) 12.5 mg capsule TAKE 1 CAPSULE BY MOUTH EVERY DAY 90 capsule 1 07/20/19 25 Active zolpidem (AMBIEN) 5 mg tablet Take 1 tablet (5 mg total) by mouth at bedtime. at bedtime for sleep Max Daily Amount: 5 mg 28 tablet 07/24/19 25 Active estradioL (ESTRACE) 0.01 % (0.1 mg/gram) vaginal cream APPLY 5 ML PER VAGINA DIRECTED 10/30/19 23 025 Discontinued(D iscontinued by another clinician) hydroCHLOROth iazide (MICROZIDE) 12.5 mg capsule TAKE 1 CAPSULE BY MOUTH EVERY DAY 02/18/20 24 025 Discontinued oxyBUTYnin XL (DITROPAN-XL) 10 mg 24 hr tablet TAKE 1 TABLET BY MOUTH EVERY NIGHT AT BEDTIME 11/18/19 025 Discontinued(D iscontinued by another clinician) sertraline (ZOLOFT) 50 mg tablet TAKE 1 TABLET BY MOUTH AT BEDTIME 03/21/20 025 Discontinued(D iscontinued by another clinician) tiZANidine (ZANAFLEX) 4 mg tablet Take 1 Tablet by mouth at bedtime as needed for Muscle spasms. 10/17/19 24 025 Discontinued zolpidem (AMBIEN) 5 mg tablet TAKE 1 TABLET BY MOUTH AT BEDTIME NEEDED FOR SLEEP. 28 tablet 06/23/19 25 025 Discontinued(R eorder) zolpidem (AMBIEN) 5 mg tablet Take 1 tablet (5 mg total) by mouth at bedtime. at bedtime for sleep Max Daily Amount: 5 mg 28 tablet 07/24/19 25 025 Discontinued(R eorder) Active Problems Problem Noted Date Diagnosed Date Hemorrhoids 05/20/2024 Anxiety 07/13/2021 Panic disorder 07/13/2021 Overview (05/20/2024): Following with neurology. Chronic neck pain 03/06/2021 Overview (05/20/2024): Follows with [facility]. Lumbar radiculopathy 03/06/2021 Overview (05/20/2024): Follows with [facility]. Hypertension 08/17/2020 Obesity (BMI 30.0-34.9) 08/17/2020 Subacromial bursitis of right shoulder joint 01/2020 Tendinitis of right shoulder 03/17/2020 Pulmonary nodules 02/02/2020 Multiple sclerosis 07/07/2019 Overview (05/20/2024): Diagnosed by Dr. Gracia Multiple thyroid nodules 10/14/2018 Overview (05/20/2024): Aspiration benign, reported 10/14/2018 Insomnia 10/07/2014 Overview (05/20/2024): 04/2018 Home Sleep Study did not reveal sleep apnea. Mixed hyperlipidemia 12/24/2012 Other chest pain 08/05/2008 Assessment & Plan (07/17/2024 4:08 PM EST): Patient complains of a nonexertional chest discomfort has 3 out of 5 risk factors for coronary disease we will send her for another stress echocardiogram. It is possible that could be coronary spasm but she would have to have an EKG done while she was having the chest discomfort. I told her if she has prolonged episode of pain to go to the ER so an EKG could be accomplished. Could be esophageal spasm. She has had CAT scans of her chest done for screening for pulmonary nodules with no particular findings. She had a CAT scan of the abdomen done with no particular findings and she is status postcholecystectomy. I told the patient that if her stress test is normal she should discuss whether a GI evaluation for esophageal spasm could be performed. I also did tell her that if she has a prolonged episode of pain to have someone take her to the ER or call 911 so that EKG can be obtained while she is having the pain to make sure that there is no evidence of coronary spasm. Though I have no history or documentation that that is the case here. She does not have any heavy lifting or pushing or pulling to be done during her workday. There is no evidence of costochondritis on exam Renal cyst 03/30/2008 Overview (05/20/2024): complicated left renal cyst, follow-up ultrasound due September 2008 IBS (irritable bowel syndrome) 03/02/2008 Overview (05/20/2024): Constipation predominant. Migraine 03/02/2008 Overview (05/20/2024): Dr. Gracia Asthma-COPD overlap syndrome 10/14/2007 Hemorrhage of gastrointestinal tract 04/03/2007 Overview (05/20/2024): Neg cn to 25 cm 04/03/2007. BE negative 04/17/2007, [facility]. Consider flex sig 2012. IMO update Allergic rhinitis 09/06/2005 Encounters Date Type Department Care Team Description 07/17/2024 3:00 PM EST Office Visit [facility] Cardiology [facility] [address] [place] [address] Leticia Bryan MD Chest pain, unspecified type (Primary Dx); Other chest pain 05/19/2024 Telephone [facility] [address] [place] [address] Pablo Resendiz MD 05/08/2024 Telephone G[facility] - [place] [address] [place] [address] Yg Barrett MD Med Refill from Last 3 Months Immunizations Name Administration Dates Next Due H1N1 Inj Preservative Free 04/15/2009 Influenza Quadravalent, MDCK , 0.5ml, preservative free (Flucelvax) 6mo and older 06/26/2022 Influenza Quadravalent, MDCK , 0.5ml, with preservative (Flucelvax) 6mo and older 03/25/2018 Influenza trivalent, 0.5mL ( Fluad) 65yo and older 03/20/2005 Influenza trivalent, 0.5mL, preservative free (Fluarix; FluLaval; Fluzone) ages 6mo and older (Afluria) 3 years and older 02/22/2021,03/24/2010,03/23/2008 Influenza trivalent, with pr eservative (Fluzone; Afluria) 6mo and older 04/05/2016,04/14/2015,03/29/2014,03/07 Influenza, Unspecified 03/26/2019 Moderna (age 6mo & older) Bi valent, COVID-19, 0.5 mL or 0.25 mL dosage 12/22/2022 Moderna SARS-CoV-2 COVID-19, mRNA, LNP-S, preservative free 07/30/2020,06/28/2020 Pneumococcal conjugate 20 va lent (Prevnar 20, PCV 20) 2mo and older 12/22/2022 Pneumococcal polysaccharide 23 valent (Pneumovax 23) 2yo and older 12/04/2012 RSV, bivalent, protein subun it RSVpreF, 0.5mL, Preservative Free (Arexvy) 60yo and older 06/08/2023 Tdap Tetanus diptheria acell ular pertussis (Boostrix; Adacel) 7yo and older 06/13/2020 Zoster recombinant (Shingrix ) 19yo and older 06/22/2021,02/22/2021 Surgical History Surgery Date Site/Laterality Comments TUBAL LIGATION 1997 PROCEDURE: HISTORICAL TUBAL LIGATION OTHER SURGICAL HISTORY 2002 PROCEDURE: MI HYSTEROSCOPY ENDOMETRIAL ABLATION FLEXIBLE SIGMOIDOSCOPY 04/03/2007 PROCEDURE: MI SIGMOIDOSCOPY FLX DX W/COLLJ SPEC BR/WA IF PFRMD; COMMENT: Neg cn to 25 cm; BE wnl. CHOLECYSTECTOMY 04/30/2008 PROCEDURE: LAPAROSCOPY, CHOLECYSTECTOMY OTHER SURGICAL HISTORY 04/2008 PROCEDURE: HISTORICAL D&C ESOPHAGOGASTRODUODENOSCOPY 04/25/2009 PROCEDURE: MI EGD TRANSORAL BIOPSY SINGLE/MULTIPLE; COMMENT: gastritis: Minimal reactive gastropathy, no H. pylori infection. HYSTERECTOMY 08/2010 PROCEDURE: HISTORICAL HYSTERECTOMY; COMMENT: Dr. Woodard MULTIPLE TOOTH EXTRACTIONS PROCEDURE: HISTORICAL DENTAL EXTRACTION COLONOSCOPY 05/03/2020 PROCEDURE: HISTORICAL COLONOSCOPY; COMMENT: Dr. Barrett - internal hemorrhoids noted SHOULDER SURGERY Right PROCEDURE: HISTORICAL SHOULDER SURGERY; COMMENT: x6, prev right humeral fx after fall BLADDER SUSPENSION PROCEDURE: HISTORICAL BLADDER SUSPENSION OTHER SURGICAL HISTORY Left PROCEDURE: MI STAB PHLEBT VARICOSE VEINS 1 XTR > 20 INCS; COMMENT: Dr. Turk Medical History Medical History Date Comments Allergic rhinitis, cause unspecified 09/06/2005 DX:Allergic rhinitis, cause unspecified Unspecified asthma(493.90) 09/06/2005 DX:Un specified asthma(493.90) Hemorrhage of gastrointestin al tract, unspecified 04/03/2007 DX:Hemorrhage of gastrointes tinal tract, unspecified; COMMENT: Neg cn to 25 cm 04/03/2007 ; BE wnl. IBS (irritable bowel syndrome) 03/02/2008 D X:IBS (irritable bowel syndrome) Chronic headache 03/02/2008 DX:Chronic head ache Diarrhea DX:Diarrhea Hemorrhoids DX:Hemorrhoids Epigastric pain DX:Epigastric pa in Nausea DX:Nausea Family History Medical History Relation Name Comments Other: sinus cancer Brother 1 Eliu +smoke r Kidney cancer Brother 2 Obed stage IV renal cell, lung cancer, and leukemia Heart attack Father CABG at 63; HTN , HLD, diabetes, glaucoma Breast cancer Maternal Grandmother bilate ral masectomy; CHF, glaucoma Breast cancer Mother COPD, colitis, cataract, fibromyalgia Heart attack Paternal Grandfather fatal M I Dementia Paternal Grandmother Breast cancer Sister 1 Tessy Stroke Sister 2 Delicia fibromyalgia Alcohol abuse Sister 3 Yari Relation Name Status Comments Brother 1 Eliu Brother 2 Obed Alive Father Maternal Grandfather Maternal Grandmother Mother Alive Paternal Grandfather Paternal Grandmother Sister 1 Tessy Alive Sister 2 Delicia Alive Sister 3 Yari Alive Social History Tobacco Use Types Packs/Day Years Used Date Smoking Tobacco: Former Cigarettes Q uit: 06/10/2007 Smokeless Tobacco: Never Alcohol Use Standard Drinks/Week Comments Not Currently 0 (1 standard drink = 0.6 oz pur e alcohol) Comments Unknown Sex and Gender Information Value Date Recorded Sex Assigned at Not on file Legal Sex Female 1:07 PM EST Gender Identity Not on file Sexual Orientation Not on file Obstetrics History Last Filed Vital Signs Vital Sign Reading Time Taken Comments Blood Pressure 124/70 07/17/2024 4:06 PM EST Pulse 83 07/17/2024 3:01 PM EST Temperature - - Respiratory Rate - - Oxygen Saturation 96% 07/17/2024 3:01 PM EST Inhaled Oxygen Concentration - - Weight 90.3 kg (199 lb) 07/17/2024 3:01 PM EST Height 165.1 cm (5' 5 ) 07/17/2024 3:01 PM EST Body Mass Index 33.12 07/17/2024 3:01 PM EST Plan of Treatment Upcoming Encounters Date Type Department Care Team (Late st Contact Info) Description 08/03/2024 9:30 AM EST Ancillary Procedure [facility] [address] [place] [address] Health Maintenance Due Date Last Done Comments Breast Cancer Screening 1960 Cervical Cancer Screening: Pap Smear 04/03/2021 04/03/2018 Medicare Annual Wellness Visit 05/18/2022 Osteoporosis Screening (Bone Density Screening) 05/18/2022 Social Influencers of Health Screening 05/18/2022 COVID-19 Vaccine ( season) 2024 12/22/2022, 04/12/2021, 07/30/2020, Additional history exists Influenza Vaccine (#1) 2024 , 02/22/2021, 03/26/2019, Additional history exists Depression Screening 12/09/2024 12/10/2023 Falls Risk Assessment 03/09/2025 03/09/2024 Hypertension/CHF/CAD Annual BMP Blood Test 03/09/2025 03/09/2024 Colorectal Cancer Screening: Colonoscopy 05/03/2025 05/03/2020 Cholesterol Screening (Lipid Panel) 11/13/2026 11/13/2021 DTaP,Tdap,and Td Vaccines (2 - Td or Tdap) 06/13/2030 06/13/2020 Hepatitis C Screening Completed 12/24/2012 Zoster Vaccines Completed 06/22/2021, 02/22/2021 Pneumococcal Vaccine: 50+ Years Completed 12/22/2022, 12/04/2012 Pneumococcal Vaccine: Pediatrics (0 to 5 Years) and At-Risk Patients (6 to 64 Years) Completed 12/22/2022, 12/04/2012 RSV Immunization Patients 60+ Years Old Completed 06/08/2023 HIB Vaccines Aged Out No longer eligi ble based on patient's age to complete this topic HPV Vaccines Aged Out No longer eligi ble based on patient's age to complete this topic Hepatitis A Vaccines Aged Out No long er eligible based on patient's age to complete this topic Hepatitis B Vaccines Aged Out No long er eligible based on patient's age to complete this topic IPV Vaccines Aged Out No longer eligi ble based on patient's age to complete this topic MMR Vaccines Aged Out No longer eligi ble based on patient's age to complete this topic Meningococcal ACWY Vaccine Aged Out N o longer eligible based on patient's age to complete this topic Meningococcal B Vacine Aged Out No lo nger eligible based on patient's age to complete this topic RSV Immunization Patients Under 20 months Aged Out No longer eligible based on patient's age to complete this topic Varicella Vaccines Aged Out No longer eligible based on patient's age to complete this topic Procedures Procedure Name Priority Date/Time Associated Diagnosis Comments ECG 12-LEAD Routine 07/17/2024 3:11 PM EST Chest pain, unspecified type FALLS RISK ASSESSMENT Routine 03/09/2024 DEPRESSION SCREENING Routine 12/10/2023 LIPID PANEL Routine 11/13/2021 COLONOSCOPY Routine 05/03/2020 PAP SMEAR Routine 04/03/2018 HEPATITIS C SCREENING Routine 12/24/2012 from Last 3 Months or Most Recently Relevant to Health Maintenance Results * ECG 12 lead (07/17/2024 3:11 PM EST) Ventricular Rate ECG 82 BPM GEMUSE Atrial Rate 82 BPM GEMUSE P-R Interval 166 ms GEMUSE QRS Duration 88 ms GEMUSE Q-T Interval 392 ms GEMUSE QTc 457 ms GEMUSE P Wave Brick 58 degrees GEMUSE R Brick 93 degrees GEMUSE T Brick 39 degrees GEMUSE ECG Interpretation Normal sinus rhythm Rightward axis Cannot rule out Anterior infarct , age undetermined Abnormal ECG When compared with ECG of 21-JAN-2023 23:45, Questionable change in QRS axis Confirmed by Tahir BRYAN, LETICIA ([id number]) on 07/18/2024 6:06:56 PM GEMUSE 07/17/2024 3:11 PM EST 07/18/2024 6:06 PM EST us Leticia Bryan MD ECG ORDERABLES Final Result GEMUSE * Falls Risk Assessment (03/09/2024) Falls Risk Assessment Abstracted Historical Provider HEALTH MAINTENANCE Final Result * Depression Screening (12/10/2023) Depression Screening Abstracted Historical Provider HEALTH MAINTENANCE Final Result * (ABNORMAL) Lipid panel (11/13/2021) [facility] LDL/HDL Ratio 4 0 - 4 Triglycerides 314(A) 0 - 150 mg/dL Cholesterol 201(A) 0 - 200 mg/dL HDL 49 >=40 mg/dL LDL Cholesterol 90 0 - 100 mg/dL Blood Venous blood specimen / Unknown [facility] Provider LAB BLOOD ORDERABLES Sue l Result * Colonoscopy (05/03/2020) [facility] Colonoscopy No Interpretation , Abstracted Anatomical Region Laterality Modality Other [facility] Provider HEALTH MAINTENANCE Final Result * Pap Smear (04/03/2018) [facility] Pap smear No Interpretation , Abstracted [facility] Provider HEALTH MAINTENANCE Final Result * Hepatitis C Screening (12/24/2012) [facility] Hepatitis C Screening Abstracted [facility] Provider HEALTH MAINTENANCE Final Result from Last 3 Months or Most Recently Relevant to Health Maintenance Insurance [place]ICAID - [place] MEDICARE Care Teams Salmon Troll Fisher Relationship Specialty Start Date End Date Pablo Resendiz MD [address] [place] [id number] PCP - General Internal Medicine 07/16/24
--- OUTSIDE RECORDS SUMMARY | 2024-07-29 18:52 | XMS_ITS | Encounter Summary ---
Author Organization [facility] Address [address] [place] [address] Care Team Providers Care Manager Emergency Name Role Phone Pablo Resendiz MD Primary Care Provider [phone] Reason for Referral * Imaging (Routine) - Authorized Specialty Diagnoses / Procedures Referred By Husam savage Referred To Contact Cardiology Diagnoses Chest pain, unspecified type Procedures Stress echocardiogram (TTE) exercise with PRN contrast, bubble, strain, and 3D order panel TN ECHOCARDIOGRAPHY TRANSTHORACIC 2D REST & STRESS W INTERPRETATION/REPORT TN ECHOCARDIOGRAPHY TRANSTHORACIC 2D REST & STRESS W/M-MODE TN DOPPLER ECHO COMPLETE TN ECHOCARDIOGRAPHY DOPPLER COLOR FLOW MAPPING TN CV TMST/BIKE MAX/SUBMAX CONTINUOUS ECG MON/PHARM STRESS SUPVSR ONLY TN TEST STRESS CARDIOVASCULAR TRACING ONLY TN CV STRESS TEST/BIKE CONT ECG MON/PHARM STRESS INTERP & REPORT ONLY Sajan Bryan MD [address] [place] [address] [address] [place] [address] Phone: tel: fax: [facility] Referral ID Status Reason Start Date Expiration Date V isits Requested Visits Authorized [id number] Authorized 07/17/2024 07/17/2025 1 1 Reason for Visit * Reason Comments New Patient Encounter Details Date Type Department Care Team (Late st Contact Info) Description 07/17/2024 3:00 PM EST Office Visit [facility] [address] [place] [id number] Sajan Bryan MD [address] [place] [address] [address] [place] [address] Chest pain, unspecified type (Primary Dx); Other chest pain Social History Tobacco Use Types Packs/Day Years [...] on file Sexual Orientation Not on file documented as of this encounter Last Filed Vital Signs Vital Sign Reading [...] Mass Index 33.12 07/17/2024 3:01 PM EST documented in this encounter Progress Notes * Sajan Bryan MD - 07/17/2024 3:00 PM ESTAssociated Problem(s): Other chest pain Patient complains of a nonexertional chest discomfort [...] for screening for pulmonary nodules with no particularfindings. She had a CAT scan of the [...] is no evidence of costochondritis on exam * Sajan Bryan MD - 07/17/2024 3:00 PM EST Images from the original note were not included. [facility] CONSULT REQUESTED BY: Dr Resendiz PCP: Pablo Resendiz MD HPI: Triny Caro is a 64 y.o. old female with 64-year-old female history of COVID. History of multiple sclerosis followed by neurology. Placed on Xanax by neurology due to anxiety over her MS. New complaints of chest pain. Stress echo 2021 negative. Nuclear stress test 2012 negative history of hypertension on unusual combination of medications including propranolol and hydrochlorothiazide. Patient is a hypertensive with a former smoking history family history of heart disease no diabetesor hyperlipidemia. She complains of a midsternal chest discomfort that comes on without exertion noradiation no nausea vomiting or diaphoresis but it causes her to freeze up can happen multiple times a day can last for a second admitted up to 2 hours it is not exertional in nature History of Present Illness ACTIVE MEDICATIONS: Outpatient Medications Marked as Taking for the 07/17/24 encounter (Office Visit) with Sajan Bryan MD Medication Sig Dispense Refill albuterol 2.5 mg /3 mL (0.083 %) nebulizer solution Take 1 Vial by nebulization every 4 hours as needed for Wheezing or Shortness of Breath (EMERGENCY USE ONLY). albuterol HFA (Ventolin HFA) 90 mcg/actuation inhaler INHALE 2 PUFFS INTO THE LUNGS EVERY 4 HOURS NEEDED FOR COUGH OR WHEEZING. ALPRAZolam (XANAX) 1 mg tablet Take 1 tablet (1 mg total) by mouth at bedtime as needed for anxiety. 28 tablet 0 aluminum chloride (Drysol Dab-O-Matic) 20 % external solution APPLY TOPICALLY TO AFFECTED AREA EVERY DAY amitriptyline (ELAVIL) 25 mg tablet Take 1 tablet (25 mg total) by mouth at bedtime. 30 each 5 nqzqsghkvk-gxagsjdrzrhmo-odglgsyp (FIORICET, ESGIC) 50-325-40 mg per tablet TAKE 2 TABLETS BY MOUTHEVERY DAY NEEDED FOR HEADACHE colestipoL (COLESTID) 1 gram tablet TAKE 1 TABLET BY MOUTH FOUR TIMES A DAY estradioL (ESTRACE) 2 mg tablet Take 2 mg by mouth daily. hydroCHLOROthiazide (MICROZIDE) 12.5 mg capsule TAKE 1 CAPSULE BY MOUTH EVERY DAY hyoscyamine (ANASPAZ,LEVSIN) 0.125 mg tablet TAKE 1 TABLET BY MOUTH 3 TIMES DAILY NEEDED FOR CRAMPING OR DIARRHEA lidocaine (LIDODERM) 5 % patch APPLY TOPICALLY TO AFFECTED AREA EVERY DAY REMOVE BEFORE BEDTIME montelukast (SINGULAIR) 10 mg tablet Take 1 Tablet by mouth at bedtime. pregabalin (LYRICA) 150 mg capsule TAKE 1 CAPSULE BY MOUTH TWICE A DAY propranoloL (INDERAL) 20 mg tablet TAKE 1 TABLET BY MOUTH TWICE A DAY FOR 30 DAYS SUMAtriptan (IMITREX) 50 mg tablet TAKE 1 TABLET AT LEAST 2 HOURS BETWEEN DOSES NEEDED ORALLY ONCE A DAY 30 DAYS tiZANidine (ZANAFLEX) 4 mg tablet TAKE 1 TABLET BY MOUTH AT BEDTIME NEEDED FOR MUSCLE SPASMS. 90tablet 1 topiramate (TOPAMAX) 50 mg tablet Take 1 tablet (50 mg total) by mouth at bedtime. zolpidem (AMBIEN) 5 mg tablet TAKE 1 TABLET BY MOUTH AT BEDTIME NEEDED FOR SLEEP. 28 tablet 0 PAST MEDICAL HISTORY: Patient Active Problem List Diagnosis Allergic rhinitis Anxiety Asthma-COPD overlap syndrome (CMS/HCC) Atypical chest pain Chronic neck pain Hemorrhage of gastrointestinal tract Hemorrhoids Hypertension IBS (irritable bowel syndrome) Insomnia Lumbar radiculopathy Migraine Mixed hyperlipidemia Multiple sclerosis (CMS/HCC) Multiple thyroid nodules Obesity (BMI 30.0-34.9) Panic disorder Pulmonary nodules Renal cyst Subacromial bursitis of right shoulder joint Tendinitis of right shoulder ALLERGIES: Allergies Allergen Reactions Sulfamethoxazole-Trimethoprim Hives Oxycodone Hcl Itching and Nausea And Vomiting Cephalexin Monohydrate Lisinopril Throat Clearing FAMILY HISTORY: Family History Problem Relation Name Age of Onset Breast cancer Mother 70.00 COPD, colitis, cataract, fibromyalgia Heart attack Father 60.00 CABG at 63; HTN, HLD, diabetes, glaucoma Breast cancer Sister Tessy 58.00 Stroke Sister Delicia 60.00 fibromyalgia Alcohol abuse Sister Yari Other (Other: sinus cancer ) Brother Eliu 60.00 +smoker Kidney cancer Brother Obed stage IV renal cell, lung cancer, and leukemia Breast cancer Maternal Grandmother 70.00 bilateral masectomy; CHF, glaucoma Dementia Paternal Grandmother Heart attack Paternal Grandfather 41.00 fatal [place] SOCIAL HISTORY: Social History Tobacco Use Smoking status: Former Current packs/day: 0.00 Types: Cigarettes Quit date: 06/10/2007 Years since quittin.1 Smokeless tobacco: Never Substance Use Topics Alcohol use: Not Currently REVIEW OF SYSTEMS: Review of Systems Constitutional: Negative. HENT: Negative. Eyes: Negative. Cardiovascular: Positive for chest pain. Respiratory: Negative. Endocrine: Negative. Hematologic/Lymphatic: Negative. Skin: Negative. Musculoskeletal: Negative. Gastrointestinal: Negative. Genitourinary: Negative. Neurological: Negative. Psychiatric/Behavioral: Negative. Allergic/Immunologic: Negative. All other systems reviewed and are negative. PHYSICAL EXAM: Vitals: 07/17/24 1501 Pulse: 83 SpO2: 96% Weight: 90.3 kg (199 lb) Height: 1.651 m (65 ) Physical Exam Constitutional: Appearance: Normal appearance. HENT: Head: Normocephalic and atraumatic. Nose: Nose normal. Eyes: Extraocular Movements: Extraocular movements intact. Pupils: Pupils are equal, round, and reactive to light. Cardiovascular: Rate and Rhythm: Regular rhythm. Pulmonary: Breath sounds: Normal breath sounds. Abdominal: General: Abdomen is flat. Bowel sounds are normal. Palpations: Abdomen is soft. Musculoskeletal: General: Normal range of motion. Cervical back: Normal range of motion and neck supple. Skin: General: Skin is warm and dry. Neurological: General: No focal deficit present. Mental Status: She is alert. Psychiatric: Mood and Affect: Mood normal. EKG: Encounter Date: 07/17/24 ECG 12 lead Result Value Ventricular Rate ECG 82 Atrial Rate 82 P-R Interval 166 QRS Duration 88 Q-T Interval 392 QTc 457 P Wave [place] 58 R [place] 93 T [place] 39 ECG Interpretation Normal sinus rhythm Rightward axis Cannot rule out Anterior infarct , age undetermined Abnormal ECG When compared with ECG of 21-JAN-2023 23:45, Questionable change in QRS axis *Note: Due to a large number of results and/or encounters for the requested time period, some results have not been displayed. A complete set of results can be found in Results Review. TESTING: ASSESSMENT/PLAN: Assessment & Plan Chest pain, unspecified type Orders: ECG 12 lead Stress echocardiogram (TTE) exercise with PRN contrast, bubble, strain, and 3D order panel; Future Other chest pain Patient complains of a nonexertional chest discomfort [...] for screening for pulmonary nodules with no particularfindings. She had a CAT scan of the [...] is no evidence of costochondritis on exam Assessment & Plan The RONNIE team will continue to co-manage this patient following the plan of care as established by my initial visit and as per AHA guidelines for ongoing management and surveillance of Chest pain Thiswill include medication titration, initiation of appropriate medications and further titration, anddiagnostic studies to manage this disease process. documented in this encounter Plan of Treatment Upcoming Encounters Date Type Department Care Team (Late st Contact Info) Description 08/03/2024 9:30 AM EST Ancillary Procedure [facility] [address] [place] [address] Scheduled Orders Name Type Priority Associated Diagnoses Order Schedule Stress echocardiogram (TTE) exercise with PRN contrast, bubble, strain, and 3D order panel Stress Echocardiography Routine Chest pain, unspecified type Expected: 07/31/2024, Expires: 07/17/2025 documented as of this encounter Procedures Procedure Name Priority Date/Time Associated Diagnosis Comments ECG 12-LEAD Routine 07/17/2024 3:11 PM EST Chest pain, unspecified type documented in this encounter Results * ECG 12 lead (07/17/2024 3:11 PM EST) Ventricular Rate ECG 82 BPM GEMUSE Atrial Rate 82 BPM GEMUSE P-R Interval 166 ms GEMUSE QRS Duration 88 ms GEMUSE Q-T Interval 392 ms GEMUSE QTc 457 ms GEMUSE P Wave [place] 58 degrees GEMUSE R [place] 93 degrees GEMUSE T [place] 39 degrees GEMUSE ECG Interpretation Normal sinus rhythm Rightward axis Cannot rule out Anterior infarct , age undetermined Abnormal ECG When compared with ECG of 21-JAN-2023 23:45, Questionable change in QRS axis Confirmed by Tahir BRYAN JAMES ([id number]) on 07/18/2024 6:06:56 PM GEMUSE 07/17/2024 3:11 PM EST 07/18/2024 6:06 PM EST us Sajan Bryan MD ECG ORDERABLES Final Result GEMUSE documented in this encounter Visit Diagnoses Diagnosis Chest pain, unspecified type- Primary documented in this encounter Discontinued Medications Medication Sig Discontinue Reason Start Date End Da te sertraline (ZOLOFT) 50 mg tablet TAKE 1 TABLET BY MOUTH AT BEDTIME Discontinued by another clinician 03/21/2023 07/18/2024 oxyBUTYnin XL (DITROPAN-XL) 10 mg 24 hr tablet TAKE 1 TABLET BY MOUTH EVERY NIGHT AT BEDTIME Discontinued by another clinician 11/17/2022 07/18/2024 estradioL (ESTRACE) 0.01 % (0.1 mg/gram) vaginal cream APPLY 5 ML PER VAGINA DIRECTED Discontinued by another clinician 10/29/2022 07/18/2024 documented as of this encounter Care Teams Manager Emergency Relationship Specialty Start Date End Date Pablo Resendiz MD [address] [place] [id number] PCP - General Internal Medicine 07/16/24 documented as of this encounter
== END 2024-07-29 18:51 | disposition home or self-care (01) ==
LOC: HO.MRI 18:50
PROVIDERS: PCP Internal Medicine; Visit Provider Psychiatry & Neurology Neurology
DX: G35 Multiple sclerosis (principal)
CPT/HCPCS: 70551

== ENCOUNTER → 2024-07-29 18:59 | Outpatient (BNV) | payer MEDICARE, MEDICAID, SELFPAY | PROVIDERS: PCP Internal Medicine; Visit Provider Radiology Diagnostic Radiology | DX: G35 Multiple sclerosis (principal) | CPT/HCPCS: 70551 ==

== ENCOUNTER 2024-10-13 10:58 | Outpatient (REF) | payer MEDICARE, MEDICAID, SELFPAY ==
--- NOTE | ~2024-10-13 | XR_ITS ---
EXAMINATION: XR SHOULDER, RIGHT CLINICAL INFORMATION: M25.511 - Pain in right shoulder COMPARISON: None available. TECHNIQUE: Two views of the right shoulder. FINDINGS: Normal bone mineralization. No acute fracture, dislocation, or suspicious bone lesion. Normal alignment. Old healed fracture deformity of the surgical neck of the humerus. The glenohumeral joint demonstrates mild to moderate osteoarthritis. There is widening of the AC joint, likely secondary to subacromial decompression. There is a neutral lateral acromion. No undersurface spurring. The subacromial space is preserved. Remainder of the soft tissue and bony structures appear normal. XR/XR shoulder RT min 2V IMPRESSION: No acute bony abnormalities right shoulder. Chronic findings as discussed. Electronically signed by: Jaskaran Polanco MD 10/13/2024 03:18 PM EDT
--- OUTSIDE RECORDS SUMMARY | 2024-10-14 12:25 | XMS_ITS | Clinical Summary ---
Author Organization [facility] Address [address] [place] [address] Phone Care Team Providers Care Smoking Pipe Repairer Name Role Phone Pablo Resendiz MD Primary Care Provider [phone] Allergies Active Allergy Reactions Criticality Noted Date Comments Cephalexin Monohydrate 09/06/2005 Lisinopril 08/01/2021 Throat Clearing Oxycodone Hcl Itching,Nausea And Vomiting Medium 04/03/2007 [facility]2013 Medications albuterol 2.5 mg [...] neck pain 03/06/2021 Overview (05/20/2024): Follows with [facility]. Lumbar radiculopathy 03/06/2021 Overview (05/20/2024): Follows with [facility]. Hypertension 08/17/2020 Obesity (BMI 30.0-34.9) 08/17/2020 Subacromial [...] Overview (05/20/2024): Dr. Gracia Asthma-COPD overlap syndrome ([facility] V24, [facility]/ [facility] V28) 10/14/2007 Hemorrhage of gastrointestinal tract 04/03/2007 Overview (05/20/2024): Neg cn to 25 cm 04/03/2007. BE negative 04/17/2007, [facility]. Consider flex sig 2011. IMO update Allergic rhinitis 09/06/2005 Encounters Date Type Department Care Team Description 09/18/2024 Telephone Adult Medicine [address] [phone] Marcie Ledbetter [place] URINE RESULTS 09/08/2024 5:00 PM EDT Office Visit Adult Medicine [address] [phone] Peggy Moore PA Hypertension, unspecified type (Primary Dx); Dysuria; Foul smelling urine; Urinary frequency; Encounter for long-term (current) use of medications; Mixed hyperlipidemia; Screening for diabetes mellitus; Anxiety; Insomnia, unspecified type; Multiple sclerosis ([facility] V24, [facility] V28); Migraine without status migrainosus, not intractable, unspecified migraine type 08/04/2024 Telephone [facility] Cardiology [facility] [address] [place] [phone] Leticia Lafleur MD Results (Stress Echo ) 08/03/2024 9:30 AM EST Ancillary Procedure [facility] Cardiology [facility] [address] [phone] Chest pain, unspecified type 07/17/2024 3:00 PM EST Office Visit [facility] [address] [place] [phone] Leticia Lafleur MD Chest pain, unspecified [...] TUBAL LIGATION OTHER SURGICAL HISTORY 2002 PROCEDURE: ID HYSTEROSCOPY ENDOMETRIAL ABLATION FLEXIBLE SIGMOIDOSCOPY 04/03/2007 PROCEDURE: ID SIGMOIDOSCOPY FLX DX W/COLLJ SPEC BR/WA IF PFRMD; COMMENT: Neg cn to 25 cm; BE wnl. CHOLECYSTECTOMY 04/30/2008 PROCEDURE: LAPAROSCOPY, CHOLECYSTECTOMY OTHER SURGICAL HISTORY 04/2008 PROCEDURE: HISTORICAL D&C ESOPHAGOGASTRODUODENOSCOPY 04/25/2009 PROCEDURE: ID EGD TRANSORAL BIOPSY SINGLE/MULTIPLE; COMMENT: gastritis: Minimal [...] BLADDER SUSPENSION OTHER SURGICAL HISTORY Left PROCEDURE: ID STAB PHLEBT VARICOSE VEINS 1 XTR > [...] and culture (09/09/2024 10:23 AM EDT) Specific [place] Urine 1.021 1.003 - 1.030 LAB URINALYSIS - AUTOMATED METHOD 09/09/2024 12:11 PM [facility] pH, Urine 7.5 5.0 - 8.0 pH LAB URINALYSIS - AUTOMATED METHOD 09/09/2024 12:11 PM [facility] Leukocytes, Urine Large(A) Negative LAB URINALYSIS - AUTOMATED METHOD 09/09/2024 12:11 PM [facility] Nitrite, Urine Positive(A) Negative LAB URINALYSIS - AUTOMATED METHOD 09/09/2024 12:11 PM [facility] Protein, Urine 30(A) <=Trace mg/dL LAB URINALYSIS - AUTOMATED METHOD 09/09/2024 12:11 PM [facility] Glucose, Urine Negative Negative mg/dL LAB URINALYSIS - AUTOMATED METHOD 09/09/2024 12:11 PM [facility] Ketones, Urine Trace(A) Negative mg/dL LAB URINALYSIS - AUTOMATED METHOD 09/09/2024 12:11 PM [facility] Urobilinogen , Urine 0.2 0.2 - 1.0 mg/dL LAB URINALYSIS - AUTOMATED METHOD 09/09/2024 12:11 PM [facility] Bilirubin, Urine Negative Negative LAB URINALYSIS - AUTOMATED METHOD 09/09/2024 12:11 PM [facility] Blood, Urine Trace(A) Negative LAB URINALYSIS - AUTOMATED METHOD 09/09/2024 12:11 PM [facility] RBC, Urine 8.7(H) 0 - 4 /HPF LAB URINALYSIS - AUTOMATED METHOD 09/09/2024 12:11 PM EDT [facility] WBC, Urine 825.8(H) 0 - 4 /HPF LAB URINALYSIS - AUTOMATED METHOD 09/09/2024 12:11 PM EDT [facility] Squamous Epithelial, Urine 61(H) 0 - 60 /LPF LAB URINALYSIS - AUTOMATED METHOD 09/09/2024 12:11 PM EDT [facility] Bacteria, Urine Moderate(A) Negative /HPF LAB URINALYSIS - AUTOMATED METHOD 09/09/2024 12:11 PM [facility] Hyaline Casts, Urine 6.4(H) 0 - 3 /LPF LAB URINALYSIS - AUTOMATED METHOD 09/09/2024 12:11 PM [facility] Urine Urine specimen obtained by clean catch procedure / Unknown Non-blood Collection / Unknown 09/09/2024 10:23 AM EDT 09/09/2024 10:23 AM EDT Peggy MONREAL LAB URINE ORDERABLES Fi nal Result [facility] [address] [place] [address], * (ABNORMAL) Lipid panel with reflex to direct LDL (09/09/2024 10:23 AM EDT) Cholesterol 192 0 - 200 mg/dL LAB CHEMISTRY METHOD 09/09/2024 7:33 PM T [facility] Triglycerides 282(H) 0 - 150 mg/dL LAB CHEMISTRY METHOD 09/09/2024 7:33 PM [facility] HDL 59 >=40 mg/dL LAB CHEMISTRY METHOD 09/09/2024 7:33 PM [facility] LDL Calculated 77 0 - 100 mg/dL LAB CHEMISTRY METHOD 09/09/2024 7:33 PM T [facility] VLDL Cholesterol Edilberto 56.4 mg/dL LAB CHEMISTRY METHOD 09/09/2024 7:33 PM EDT [facility] Non HDL Chol. (LDL+VLDL) 133 <145 mg/dL LAB CHEMISTRY METHOD 09/09/2024 7:33 PM EDT [facility] Chol/HDL Ratio 3.3 0.0 - 4.4 LAB CHEMISTRY METHOD 09/09/2024 7:33 PM EDT [facility] Blood Venous blood specimen / Unknown Venipuncture / Unknown 09/09/2024 10:23 AM EDT 09/09/2024 10:23 AM EDT Peggy MONREAL LAB BLOOD ORDERABLES Fi nal Result [facility] [address] [place] [address], * (ABNORMAL) Drug abuse screen 8a panel, urine (09/09/2024 10:23 AM EDT) Amphetamine Screen, Ur Negative Negative LAB CHEMISTRY METHOD 5 10:33 PM T [facility] Comment:Certain OTC medicati ons containing ephedrine, phenylephrine, pseudoephedrine and phenylpropanolamine can cause false positive results. Barbiturate Screen, Ur Negative Negative LAB CHEMISTRY METHOD 5 10:33 PM EDT [facility] Benzodiazepine Screen, Ur Positive(A ) Negative LAB CHEMISTRY METHOD 5 10:33 PM EDT [facility] Cocaine Screen, Ur Negative Negative LAB CHEMISTRY METHOD 5 10:33 PM EDT [facility] Opiate Screen, Ur Negative Negative LAB CHEMISTRY METHOD 5 10:33 PM [facility] Cannabinoid (THC) Screen, Ur Negative Negative LAB CHEMISTRY METHOD 5 10:33 PM EDT [facility] Comment:Specimens from patie nts taking pantoprazole sodium (Protonix) have been shown to produce false positive results. Oxycodone Screen, Ur Negative Negative LAB CHEMISTRY METHOD 5 10:33 PM EDT [facility] Fentanyl, Ur Negative Negative LAB CHEMISTRY METHOD 5 10:33 PM EDT [facility] Urine Urine specimen obtained by clean catch procedure / Unknown Non-blood Collection / Unknown 09/09/2024 10:23 AM EDT 09/09/2024 10:23 AM EDT Narrative [facility] - 09/09/2024 10:33 PM EDT Assay cutoffs: Amphetamines ? 1000 ng/mL Barbiturates ?200 ng/mL Benzodiazepines ?? 200 ng/mL Cocaine ? 300 ng/mL Fentanyl ?1 ng/mL Opiates ? 300 ng/mL Oxycodone ? 100 ng/mL THC ?50 ng/mL Semi-quantitative assay for screening purposes only. Unconfirmed screening result should not be used for non-medical purposes. *ALTERNATE METHOD CONFIRMATION DONE UPON REQUEST ONLY* Peggy Moore CO LAB URINE ORDERABLES Fi nal Result [facility] [address] [place] [address], * (ABNORMAL) Culture urine (09/09/2024 10:23 AM EDT) Culture, Urine >100,000 CFU/mL Proteus mirabilis(A ) TERESA 09/11/2024 10:10 AM EDT [facility] Comment: Edited result: Previously reported as [...] Susceptible Peggy MONREAL LAB MICROBIOLOGY - [facility] ORDERABLES Final Result [facility] [address] [place] [address], * Hemoglobin A1c (09/09/2024 10:23 AM EDT) Hemoglobin A1C 5.7 <6.5 % LAB CHEMISTRY METHOD 09/09/2024 2:05 PM EDT [facility] Mean Bld Glu Estim. 117 mg/dL LAB CHEMISTRY METHOD 09/09/2024 2:05 PM EDT [facility] Blood Venous blood specimen / Unknown Venipuncture / Unknown 09/09/2024 10:23 AM EDT 09/09/2024 10:23 AM EDT Peggy MONREAL LAB BLOOD ORDERABLES Fi nal Result [facility] [address] [place] [address], * (ABNORMAL) Basic metabolic panel (09/09/2024 10:23 AM EDT) Pathologist [facility] Sodium 135 133 - 145 mmol/L LAB CHEMISTRY METHOD 09/09/2024 7:20 PM [facility] Potassium 4.2 3.5 - 5.5 mmol/L LAB CHEMISTRY METHOD 09/09/2024 7:20 PM [facility] Chloride 101 96 - 110 mmol/L LAB CHEMISTRY METHOD 09/09/2024 7:20 PM [facility] CO2 26 21 - 32 mmol/L LAB CHEMISTRY METHOD 09/09/2024 7:20 PM [facility] Anion Gap 8 3 - 11 LAB CHEMISTRY METHOD 09/09/2024 7:20 PM [facility] Glucose 117(H) 70 - 100 mg/dL LAB CHEMISTRY METHOD 09/09/2024 7:20 PM [facility] BUN 18 5 - 25 mg/dL LAB CHEMISTRY METHOD 09/09/2024 7:20 PM [facility] Creatinine 0.92 0.50 - 1.10 mg/dL LAB CHEMISTRY METHOD 09/09/2024 7:20 PM [facility] eGFR 69 >=60 mL/min/1. 73m2 LAB CHEMISTRY METHOD 09/09/2024 7:20 PM [facility] Comment:Calculation based on the??Chronic Kidney Disease Epidemiology Collaboration (CKD-EPI) equation refit??without adjustment for race. BUN/Creatinine Ratio 19.6 LAB CHEMISTRY METHOD 09/09/2024 7:20 PM EDT [facility] Calcium 9.6 8.5 - 10.5 mg/dL LAB CHEMISTRY METHOD 09/09/2024 7:20 PM EDT [facility] Blood Venous blood specimen / Unknown Venipuncture / Unknown 09/09/2024 10:23 AM EDT 09/09/2024 10:23 AM EDT [facility] LAB BLOOD ORDERABLES Fi nal Result Performing Organization Address [facility]/ZIP Co de Phone Number [facility] [address] [place] [address], [place] [phone] * Mann urine culture tube (09/09/2024 10:08 AM EDT) Extra Tube Hold for add-ons. 09/09/2024 12:02 PM EDT [facility] Comment:Auto resulted. Urine Urine specimen obtained by clean catch procedure / Unknown Non-blood Collection / Unknown 09/09/2024 10:08 AM EDT 09/09/2024 10:08 AM EDT [facility] LAB URINE ORDERABLES Fi nal Result Performing Organization Address [facility]/ZIP Co de Phone Number [facility] [address] [place] [address], [place] [phone] * STRESS ECHOCARDIOGRAM EXERCISE WITH CONTRAST (08/03/2024 [...] Normal wall motion, unchanged from baseline. Result [facility] Leticia Lafleur MD CV ECHO PROCEDURES Final Resul t * ECG 12 lead (07/17/2024 3:11 PM EST) [facility] Ventricular Rate ECG 82 BPM GEMUSE Atrial Rate 82 BPM GEMUSE P-R Interval 166 ms GEMUSE QRS Duration 88 ms GEMUSE Q-T Interval 392 ms GEMUSE QTc 457 ms GEMUSE P Wave Gregory 58 degrees GEMUSE R Gregory 93 degrees GEMUSE T Gregory 39 degrees GEMUSE ECG Interpretation Normal sinus rhythm Rightward axis Cannot rule out Anterior infarct , age undetermined Abnormal ECG When compared with ECG of 21-JAN-2023 23:45, Questionable change in QRS axis Confirmed by Tahir LAFLEUR, LETICIA ([id number]) on 07/18/2024 6:06:56 PM GEMUSE 07/17/2024 3:11 PM EST 07/18/2024 6:06 PM EST Result [facility] Leticia Lafleur MD ECG ORDERABLES Final Result GEMUSE * Falls Risk Assessment (03/09/2024) [facility] Falls Risk Assessment Abstracted Result [facility] Historical Provider HEALTH MAINTENANCE Final Result * Depression Screening (12/10/2023) [facility] Depression Screening Abstracted Result [facility] Historical Provider HEALTH MAINTENANCE Final Result * Colonoscopy (05/03/2020) [facility] Colonoscopy No Interpretation , Abstracted Anatomical Region Laterality Modality Other Result [facility] Historical Provider HEALTH MAINTENANCE Final Result * Pap Smear (04/03/2018) [facility] Pap smear No Interpretation , Abstracted Result [facility] Historical Provider HEALTH MAINTENANCE Final Result * Hepatitis C Screening (12/24/2012) Hepatitis C Screening Abstracted Historical Provider HEALTH MAINTENANCE Final Result from Last 3 Months or Most Recently Relevant to Health Maintenance Insurance MEDICAID - [place] MEDICARE Care Teams Smoking Pipe Repairer Relationship Specialty Start Date End Date Pablo Resendiz MD [address] [place] [phone] PCP - General Internal Medicine 07/16/24
--- OUTSIDE RECORDS SUMMARY | 2024-10-14 12:25 | XMS_ITS | Clinical Summary ---
Author Organization [facility] Address [address] [phone] Care Team Providers Care Sign Maintenance Name Role Phone Heraclio Gold MD Primary Care Provider [phone] Allergies Active Allergy Reactions Criticality Noted Date [...] age to complete this topic Care Teams Sign Maintenance Relationship Specialty Start Date End Date Heraclio Gold MD [address] [place] [address] [phone] PCP - General Internal Medicine 07/07/18
== END 2024-10-13 10:59 | disposition home or self-care (01) ==
LOC: HO.HOSX 10:58
PROVIDERS: Visit Provider Orthopaedic Surgery
DX: M25.511 Pain in right shoulder (principal); M54.2 Cervicalgia
CPT/HCPCS: 73030; 99202

== ENCOUNTER 2024-10-13 13:59 | Outpatient (AMB) | payer MEDICARE, MEDICAID, SELFPAY ==
[2024-10-13 14:05] VITALS: BMI 31.6
--- NOTE | 2024-10-13 14:05 | A.OFFVIS_ITS ---
Vital Signs 10/13/24 14:05 Height 5 ft 5 in Weight 190 lb BMI 31.6 Intake Visit Reasons: [employer]-Right shoulder pain, Neck pain Intake Note: Triny is a 64 year old right hand dominant female who presents with complaints of progressively worsening neck pain which radiates down her right arm as well as progressively worsening right shoulder pain. The patient states that her symptoms have gotten worse over the last 10 years. She has failed the last 6 weeks of conservative treatment which has included a home exercise program, physical therapy exercises, Tylenol, and prednisone. She reports weakness in her right arm. At this point her symptoms are interfering with her activities of daily living and her ability to sleep well through the night. The patient has been seen at [facility]. She has had injections given into her neck which gave her minimal relief. Allergies oxycodone Allergy (Verified 10/13/24 14:20) Nausea sulfamethoxazole [From Bactrim] Allergy (Verified 10/13/24 14:20) Hives trimethoprim [From Bactrim] Allergy (Verified 10/13/24 14:20) Hives Medication List - Last Reconciled 10/13/24 by Eusebio Santana MD azithromycin 250 mg PO DAILY 4 days ondansetron 4 mg PO Q8H PRN prednisone 20 mg PO DAILY PFSH Social History (Updated 10/13/24 @ 14:21 by JACK Dinh) Current occupation: rt handed Physical Exam Vital Signs: BMI result Body Mass Index 31.6 Const Other: Well-nourished well-developed very friendly female awake alert and oriented x3 in no acute distress Neck Other: Cervical spine examination shows positive Spurling's test, pain with range of motion, right-sided paraspinal muscle tenderness, 4/5 strength with testing of her right biceps and wrist extensors when compared to 5/5 strength on her left side Extrem Other: Right shoulder examination shows slightly decreased range of motion when compared to her left shoulder, 4/5 strength with supraspinatus testing, positive impingement signs, no instability Results Reviewed Results Reviewed: X-rays of the patient's right shoulder show moderate acromioclavicular joint narrowing, a type 2 acromion, no acute bony abnormalities Assessment & Plan Assessment & Plan (1) Right shoulder pain: Code(s): M25.511 - Pain in right shoulder Category: Medical (2) Neck pain on right side: Code(s): M54.2 - Cervicalgia Category: Medical Plan Ms. Caro presents with progressively worsening neck pain which radiates into her right arm as well as associated right arm weakness most likely due to cervical stenosis versus a disc herniation. Thus, I will send the patient for an MRI of her cervical spine for further evaluation. She also has right shoulder pain and weakness due to impingement syndrome and possible rotator cuff tearing. We will hold off on a right shoulder MRI until after her cervical spine MRI the patient will continue with her aypom-bw-rffzow exercises in the meantime. I will contact her by phone once the MRI is completed to discuss the findings. She will call me prior to that time should her symptoms worsen in any way. I spent 21 minutes in reviewing the patient's records and imaging studies, seeing the patient and documenting in the medical record. Orders: Orders MR cervical spine wo con 10/13/24 M54.2 - Cervicalgia XR shoulder RT min 2V 10/13/24 M25.511 - Pain in right shoulder Coding Level of Care Code New Pt Level 3 (42846) Complex EM visit Add On G2211 Diagnoses Right shoulder pain M25.511 Neck pain on right side M54.2
--- OUTSIDE RECORDS SUMMARY | 2024-10-13 15:20 | XMS_ITS | Clinical Summary ---
Author Organization [facility] [employer] Address [address] [address] Phone Care Team Providers Care Tool Room Supervisor Name Role Phone Pablo Resendiz MD Primary Care Provider [phone] Allergies Active Allergy Reactions Criticality Noted Date Comments Cephalexin Monohydrate 09/06/2005 Lisinopril 08/01/2021 Throat Clearing Oxycodone Hcl Itching,Nausea And Vomiting Medium 04/03/2007 [facility] 08/11/2013 Medications albuterol 2.5 mg /3 [...] AFFECTED AREA EVERY DAY 10/17/19 24 Active butalbital-billie taminophen-caf feine (FIORICET, ESGIC) 50-325-40 mg per tablet TAKE 2 TABLETS BY MOUTH EVERY DAY NEEDED FOR HEADACHE 01/12/20 23 Active colestipoL (COLESTID) 1 gram tablet TAKE 1 TABLET BY MOUTH FOUR TIMES A DAY 03/06/20 24 Active estradioL (ESTRACE) 2 mg tablet Take 2 mg by mouth daily. Active hyoscyamine (ANASPAZ,LEVSI N) 0.125 mg tablet TAKE 1 TABLET BY [...] 30 each 5 05/24/20 24 025 Active tiZANidine (ZANAFLEX) 4 mg tablet TAKE 1 TABLET BY MOUTH AT BEDTIME NEEDED FOR MUSCLE SPASMS. 90 tablet 1 07/15/19 25 Active hydroCHLOROthi azide (MICROZIDE) 12.5 mg capsule TAKE 1 CAPSULE BY MOUTH EVERY DAY 90 capsule 1 07/20/19 25 Active ALPRAZolam (XANAX) 1 mg tablet Take 1 tablet (1 mg total) by mouth at bedtime as needed for anxiety. 28 tablet 09/15/19 25 Active zolpidem (AMBIEN) 5 mg tablet Take 1 tablet (5 mg total) by mouth at bedtime. at bedtime for sleep Max Daily Amount: 5 mg 28 tablet 09/22/19 25 Active zolpidem (AMBIEN) 5 mg tablet Take 1 tablet (5 mg total) by mouth at bedtime. at bedtime for sleep Max Daily Amount: 5 mg 28 tablet 08/25/19 25 025 Discontinu ed(Reorder ) amoxicillin-cl avulanate (AUGMENTIN) 500-125 mg per tablet Take 1 tablet by mouth 2 (two) times a day for 7 days. 14 each 09/19/19 25 025 fluconazole (DIFLUCAN) 150 mg tablet Take 1 tablet (150 mg total) by mouth See administration instructions for 1 day. Take one tab now. Repeat in 7 days if symptoms persist. 2 tablet 09/25/19 25 025 Active Problems Problem Noted Date Diagnosed Date Prediabetes 09/18/2024 Hemorrhoids 05/20/2024 Anxiety 07/13/2021 Panic disorder 07/13/2021 Overview (05/20/2024): Following with neurology. Chronic neck pain 03/06/2021 Overview (05/20/2024): Follows with [facility] Lumbar radiculopathy 03/06/2021 Overview (05/20/2024): Follows with [facility] [employer] Hypertension 08/17/2020 Obesity (BMI 30.0-34.9) 08/17/2020 Subacromial bursitis of right shoulder joint 01/2020 Tendinitis of right shoulder 03/17/2020 Pulmonary nodules 02/02/2020 Multiple sclerosis (CMS/HCC V24, CMS/HCC V28) Overview (05/20/2024): Diagnosed by Dr. Gracia Multiple [...] Overview (05/20/2024): Dr. Gracia Asthma-COPD overlap syndrome ([facility] V24, [facility]/ [facility] V28) 10/14/2007 Hemorrhage of gastrointestinal tract 04/03/2007 Overview (05/20/2024): Neg cn to 25 cm 04/03/2007. BE negative 04/17/2007, [facility]. Consider flex sig 2011. IMO update Allergic rhinitis 09/06/2005 Encounters Date Type Department Care Team Description 09/18/2024 Telephone Adult Medicine [address] [phone] Marcie Ledbetter [place] URINE RESULTS 09/08/2024 5:00 PM EDT Office Visit Adult Medicine [address] [phone] Peggy Moore PA Hypertension, unspecified type (Primary Dx); Dysuria; Foul smelling urine; Urinary frequency; Encounter for long-term (current) use of medications; Mixed hyperlipidemia; Screening for diabetes mellitus; Anxiety; Insomnia, unspecified type; Multiple sclerosis ([facility] V24, CMS/[facility] V28); Migraine without status migrainosus, not intractable, unspecified migraine type 08/04/2024 Telephone [facility] Cardiology [facility] [address] [place] [address] Leticia Lafleur MD Results (Stress Echo ) 08/03/2024 9:30 AM EST Ancillary Procedure [facility] Cardiology [facility] [address] [place] [address] Chest pain, unspecified type 07/17/2024 3:00 PM EST Office Visit [facility] [address] [place] [address] Leticia Lafleur MD Chest pain, unspecified type (Primary Dx); Other chest pain from Last 3 Months Immunizations Name Administration [...] 03/26/2019 Moderna (age 6mo & older) Bi ISIS etienneID-19, 0.5 mL or 0.25 mL dosage 12/22/2022 [...] TUBAL LIGATION OTHER SURGICAL HISTORY 2002 PROCEDURE: [place] HYSTEROSCOPY ENDOMETRIAL ABLATION FLEXIBLE SIGMOIDOSCOPY 04/03/2007 PROCEDURE: KS SIGMOIDOSCOPY FLX DX W/COLLJ SPEC BR/WA IF PFRMD; COMMENT: Neg cn to 25 cm; BE wnl. CHOLECYSTECTOMY 04/30/2008 PROCEDURE: LAPAROSCOPY, CHOLECYSTECTOMY OTHER SURGICAL HISTORY 04/2008 PROCEDURE: HISTORICAL D&C ESOPHAGOGASTRODUODENOSCOPY 04/25/2009 PROCEDURE: KS EGD TRANSORAL BIOPSY SINGLE/MULTIPLE; COMMENT: gastritis: Minimal [...] BLADDER SUSPENSION OTHER SURGICAL HISTORY Left PROCEDURE: KS STAB PHLEBT VARICOSE VEINS 1 XTR > [...] Dementia Paternal Grandmother Breast cancer Sister 1 Etssy Stroke Sister 2 Delicia fibromyalgia Alcohol abuse Sister 3 Yari Relation Name Status Comments Brother 1 Eliu Brother 2 Obed Alive Father Maternal Grandfather Maternal Grandmother Mother Alive Paternal Grandfather Paternal Grandmother Sister 1 Tessy Alive Sister 2 Delicia Alive Sister 3 Yari Alive Social History Tobacco Use Types Packs/Day Years Used Date Smoking Tobacco: Former Cigarettes Q uit: 06/10/2007 Smokeless Tobacco: Never Tobacco Cessation:Counseling Given: Not Answered Alcohol Use Standard Drinks/Week Comments Not Currently 0 (1 standard drink = 0.6 oz pur e alcohol) Comments Unknown Sex and Gender Information Value Date Recorded Sex Assigned at Not on file Legal Sex Female 1:07 PM EST Gender Identity Not on file Sexual Orientation Not on file Obstetrics History Last Filed Vital Signs Vital Sign Reading Time Taken Comments Blood Pressure 114/70 09/08/2024 4:58 PM EDT Pulse 86 09/08/2024 4:58 PM EDT Temperature 36 ??C (96.8 ??F) 09/08/2024 4:58 PM EDT Respiratory Rate - - Oxygen Saturation 96% 09/08/2024 4:58 PM EDT Inhaled Oxygen Concentration - - Weight 90 kg (198 lb 8 oz) 09/08/2024 4:58 PM ED T Height 165.1 cm (5' 5 ) 09/08/2024 4:58 PM EDT Body Mass Index 33.03 09/08/2024 4:58 PM EDT Plan of Treatment Health Maintenance Due Date Last Done Comments Breast Cancer Screening 1960 Cervical Cancer Screening: Pap Smear 04/03/2021 04/03/2018 Medicare Annual Wellness Visit 05/18/2022 Osteoporosis Screening (Bone Density Screening) 05/18/2022 Social Influencers of Health Screening 05/18/2022 COVID-19 Vaccine ( season) 2024 12/22/2022, 04/12/2021, 07/30/2020, Additional history exists Depression Screening 12/09/2024 12/10/2023 Influenza Vaccine (Season Ended) 2025 06/26/2022, 02/22/2021, 03/26/2019, Additional history exists Falls Risk Assessment 03/09/2025 03/09/2024 Colorectal Cancer Screening: Colonoscopy 05/03/2025 05/03/2020 Hypertension/CHF/CAD Annual BMP Blood Test 09/09/2025 09/09/2024, 03/09/2024 Cholesterol Screening (Lipid Panel) 09/09/2029 09/09/2024, 11/13/2021 DTaP,Tdap,and Td Vaccines (2 - Td or Tdap) 06/13/2030 06/13/2020 Hepatitis C Screening Completed 12/24/2012 Zoster Vaccines Completed 06/22/2021, 02/22/2021 Pneumococcal Vaccine: 50+ Years Completed 12/22/2022, 12/04/2012 Pneumococcal Vaccine: Pediatrics (0 to 5 Years) and At-Risk Patients (6 to 64 Years) Completed 12/22/2022, 12/04/2012 RSV Immunization Adult Patients Completed 06/08/2023 HIB Vaccines Aged Out No [...] age to complete this topic Meningococcal B Vaccine Aged Out No l onger eligible based on patient's age to complete this topic RSV Immunization Patients Under 20 months Aged Out No longer eligible based on patient's age to complete this topic Varicella Vaccines Aged Out No longer eligible based on patient's age to complete this topic Procedures Procedure Name Priority Date/Time Associated Diagnosis Comments URINALYSIS WITH REFLEX MICROSCOPIC AND CULTURE Routine 09/09/2024 10:23 AM EDT Dysuria Foul smelling urine Urinary frequency DRUG ABUSE SCREEN 8A PANEL, URINE Routine 09/09/2024 10:23 AM EDT Encounter for long-term (current) use of medications BASIC METABOLIC PANEL Routine 09/09/2024 10:23 AM EDT Hypertension, unspecified type LIPID PANEL WITH REFLEX TO DIRECT LDL Routine 09/09/2024 10:23 AM EDT Mixed hyperlipidemia HEMOGLOBIN A1C Routine 09/09/2024 10:23 AM EDT Screening for diabetes mellitus CULTURE URINE Routine 09/09/2024 10:23 AM EDT Dysuria Foul smelling urine Urinary frequency MANN URINE CULTURE TUBE Routine 09/09/2024 10:08 AM EDT Dysuria Foul smelling urine Urinary frequency URINALYSIS WITH REFLEX MICROSCOPIC AND CULTURE Routine 09/09/2024 10:08 AM EDT Dysuria Foul smelling urine Urinary frequency STRESS ECHOCARDIOGRAM EXERCISE WITH CONTRAST Routine 08/03/2024 9:46 AM EST Chest pain, unspecified type ECG 12-LEAD Routine 07/17/2024 3:11 PM EST Chest pain, unspecified type FALLS RISK ASSESSMENT Routine 03/09/2024 HM DEPRESSION SCREENING Routine 12/10/2023 HM COLONOSCOPY Routine 05/03/2020 HM PAP SMEAR Routine 04/03/2018 HEPATITIS C SCREENING Routine 12/24/2012 from Last 3 Months or Most Recently Relevant to Health Maintenance Results * (ABNORMAL) Urinalysis with reflex microscopic and culture (09/09/2024 10:23 AM EDT) Specific [place] Urine 1.021 1.003 - 1.030 LAB URINALYSIS - AUTOMATED METHOD 09/09/2024 12:11 PM [facility] pH, Urine 7.5 5.0 - 8.0 pH LAB URINALYSIS - AUTOMATED METHOD 09/09/2024 12:11 PM [facility] Leukocytes, Urine Large(A) Negative LAB URINALYSIS - AUTOMATED METHOD 09/09/2024 12:11 PM [facility] Nitrite, Urine Positive(A) Negative LAB URINALYSIS - AUTOMATED METHOD 09/09/2024 12:11 PM [facility] Protein, Urine 30(A) <=Trace mg/dL LAB URINALYSIS - AUTOMATED METHOD 09/09/2024 12:11 PM [facility] Glucose, Urine Negative Negative mg/dL LAB URINALYSIS - AUTOMATED METHOD 09/09/2024 12:11 PM [facility] Ketones, Urine Trace(A) Negative mg/dL LAB URINALYSIS - AUTOMATED METHOD 09/09/2024 12:11 PM [facility] Urobilinogen , Urine 0.2 0.2 - 1.0 mg/dL LAB URINALYSIS - AUTOMATED METHOD 09/09/2024 12:11 PM [facility] Bilirubin, Urine Negative Negative LAB URINALYSIS - AUTOMATED METHOD 09/09/2024 12:11 PM [facility] Blood, Urine Trace(A) Negative LAB URINALYSIS - AUTOMATED METHOD 09/09/2024 12:11 PM [facility] RBC, Urine 8.7(H) 0 - 4 /HPF LAB URINALYSIS - AUTOMATED METHOD 09/09/2024 12:11 PM EDT [facility] WBC, Urine 825.8(H) 0 - 4 /HPF LAB URINALYSIS - AUTOMATED METHOD 09/09/2024 12:11 PM EDT [facility] Squamous Epithelial, Urine 61(H) 0 - 60 /LPF LAB URINALYSIS - AUTOMATED METHOD 09/09/2024 12:11 PM EDT [facility] Bacteria, Urine Moderate(A) Negative /HPF LAB URINALYSIS - AUTOMATED METHOD 09/09/2024 12:11 PM [facility] Hyaline Casts, Urine 6.4(H) 0 - 3 /LPF LAB URINALYSIS - AUTOMATED METHOD 09/09/2024 12:11 PM [facility] Urine Urine specimen obtained by clean catch procedure / Unknown Non-blood Collection / Unknown 09/09/2024 10:23 AM EDT 09/09/2024 10:23 AM EDT Peggy MONREAL LAB URINE ORDERABLES Fi nal Result [facility] [address] [place] [address], * (ABNORMAL) Lipid panel with reflex to direct LDL (09/09/2024 10:23 AM EDT) Cholesterol 192 0 - 200 mg/dL LAB CHEMISTRY METHOD 09/09/2024 7:33 PM T [facility] Triglycerides 282(H) 0 - 150 mg/dL LAB CHEMISTRY METHOD 09/09/2024 7:33 PM [facility] HDL 59 >=40 mg/dL LAB CHEMISTRY METHOD 09/09/2024 7:33 PM [facility] LDL Calculated 77 0 - 100 mg/dL LAB CHEMISTRY METHOD 09/09/2024 7:33 PM T [facility] VLDL Cholesterol Edilberto 56.4 mg/dL LAB CHEMISTRY METHOD 09/09/2024 7:33 PM EDT [facility] Non HDL Chol. (LDL+VLDL) 133 <145 mg/dL LAB CHEMISTRY METHOD 09/09/2024 7:33 PM EDT [facility] Chol/HDL Ratio 3.3 0.0 - 4.4 LAB CHEMISTRY METHOD 09/09/2024 7:33 PM EDT [facility] Blood Venous blood specimen / Unknown Venipuncture / Unknown 09/09/2024 10:23 AM EDT 09/09/2024 10:23 AM EDT Peggy MONREAL LAB BLOOD ORDERABLES Fi nal Result [facility] [address] [place] [address], * (ABNORMAL) Drug abuse screen 8a panel, urine (09/09/2024 10:23 AM EDT) Amphetamine Screen, Ur Negative Negative LAB CHEMISTRY METHOD 5 10:33 PM T [facility] Comment:Certain OTC medicati ons containing ephedrine, phenylephrine, pseudoephedrine and phenylpropanolamine can cause false positive results. Barbiturate Screen, Ur Negative Negative LAB CHEMISTRY METHOD 5 10:33 PM EDT [facility] Benzodiazepine Screen, Ur Positive(A ) Negative LAB CHEMISTRY METHOD 5 10:33 PM EDT [facility] Cocaine Screen, Ur Negative Negative LAB CHEMISTRY METHOD 5 10:33 PM EDT [facility] Opiate Screen, Ur Negative Negative LAB CHEMISTRY METHOD 5 10:33 PM [facility] Cannabinoid (THC) Screen, Ur Negative Negative LAB CHEMISTRY METHOD 5 10:33 PM EDT [facility] Comment:Specimens from patie nts taking pantoprazole sodium (Protonix) have been shown to produce false positive results. Oxycodone Screen, Ur Negative Negative LAB CHEMISTRY METHOD 5 10:33 PM EDT [facility] Fentanyl, Ur Negative Negative LAB CHEMISTRY METHOD 5 10:33 PM EDT [facility] Urine Urine specimen obtained by clean catch procedure / Unknown Non-blood Collection / Unknown 09/09/2024 10:23 AM EDT 09/09/2024 10:23 AM EDT Narrative [facility] - 09/09/2024 10:33 PM EDT Assay cutoffs: Amphetamines ? 1000 ng/mL Barbiturates ?200 ng/mL Benzodiazepines ?? 200 ng/mL Cocaine ? 300 ng/mL Fentanyl ?1 ng/mL Opiates ? 300 ng/mL Oxycodone ? 100 ng/mL THC ?50 ng/mL Semi-quantitative assay for screening purposes only. Unconfirmed screening result should not be used for non-medical purposes. *ALTERNATE METHOD CONFIRMATION DONE UPON REQUEST ONLY* Peggy Moore [place] LAB URINE ORDERABLES Fi nal Result [facility] [address] [place] [address], * (ABNORMAL) Culture urine (09/09/2024 10:23 AM EDT) Culture, Urine >100,000 CFU/mL Proteus mirabilis(A ) TERESA 09/11/2024 10:10 AM EDT [facility] Comment: Edited result: Previously reported as Proteus species on 09/10/2024 at 0832 EDT. Urine Urine specimen obtained by clean catch procedure / Unknown Non-blood Collection / Unknown 09/09/2024 10:23 AM EDT 09/09/2024 12:11 PM EDT Narrative Organism Antibiotic Method Susceptibility Proteus mirabilis Amoxicillin/Clavulanate TERESA 4 ug/ml: Susceptible Proteus mirabilis Ampicillin/Sulbactam TERESA <=2 ug/ml: Susceptible Proteus mirabilis Piperacillin/Tazobactam TERESA <=4 ug/ml: Susceptible Proteus mirabilis Cefazolin (Urine) TERESA 4 ug/ml: Susceptible Proteus mirabilis Cefoxitin TERESA 8 ug/ml: Susceptible Proteus mirabilis Ceftazidime TERESA <=0.5 ug/ml: Susceptible Proteus mirabilis Ceftriaxone TERESA <=0.25 ug/ml: Susceptible Proteus mirabilis Cefepime TERESA <=0.12 ug/ml: Susceptible Proteus mirabilis Meropenem TERESA 1 ug/ml: Susceptible Proteus mirabilis Amikacin TERESA 4 ug/ml: Susceptible Proteus mirabilis Gentamicin TERESA <=1 ug/ml: Susceptible Proteus mirabilis Ciprofloxacin TERESA <=0.06 ug/ml: Susceptible Proteus mirabilis Levofloxacin TERESA <=0.12 ug/ml: Susceptible Proteus mirabilis Nitrofurantoin TERESA 128 ug/ml: Resistant Proteus mirabilis Trimethoprim/Sulfamethoxazole TERESA <=20 ug/ml: Susceptible Peggy MONREAL LAB MICROBIOLOGY - [facility] ORDERABLES Final Result [facility] [address] [place] [address], * Hemoglobin A1c (09/09/2024 10:23 AM EDT) Hemoglobin A1C 5.7 <6.5 % LAB CHEMISTRY METHOD 09/09/2024 2:05 PM EDT [facility] Mean Bld Glu Estim. 117 mg/dL LAB CHEMISTRY METHOD 09/09/2024 2:05 PM EDT [facility] Blood Venous blood specimen / Unknown Venipuncture / Unknown 09/09/2024 10:23 AM EDT 09/09/2024 10:23 AM EDT Peggy MONREAL LAB BLOOD ORDERABLES Fi nal Result [facility] [address] [place] [address], * (ABNORMAL) Basic metabolic panel (09/09/2024 10:23 AM EDT) Pathologist [facility] Sodium 135 133 - 145 mmol/L LAB CHEMISTRY METHOD 09/09/2024 7:20 PM [facility] Potassium 4.2 3.5 - 5.5 mmol/L LAB CHEMISTRY METHOD 09/09/2024 7:20 PM [facility] Chloride 101 96 - 110 mmol/L LAB CHEMISTRY METHOD 09/09/2024 7:20 PM [facility] CO2 26 21 - 32 mmol/L LAB CHEMISTRY METHOD 09/09/2024 7:20 PM [facility] Anion Gap 8 3 - 11 LAB CHEMISTRY METHOD 09/09/2024 7:20 PM [facility] Glucose 117(H) 70 - 100 mg/dL LAB CHEMISTRY METHOD 09/09/2024 7:20 PM [facility] BUN 18 5 - 25 mg/dL LAB CHEMISTRY METHOD 09/09/2024 7:20 PM [facility] Creatinine 0.92 0.50 - 1.10 mg/dL LAB CHEMISTRY METHOD 09/09/2024 7:20 PM [facility] eGFR 69 >=60 mL/min/1. 73m2 LAB CHEMISTRY METHOD 09/09/2024 7:20 PM [facility] Comment:Calculation based on the??Chronic Kidney Disease Epidemiology Collaboration (CKD-EPI) equation refit??without adjustment for race. BUN/Creatinine Ratio 19.6 LAB CHEMISTRY METHOD 09/09/2024 7:20 PM EDT [facility] Calcium 9.6 8.5 - 10.5 mg/dL LAB CHEMISTRY METHOD 09/09/2024 7:20 PM EDT [facility] Blood Venous blood specimen / Unknown Venipuncture / Unknown 09/09/2024 10:23 AM EDT 09/09/2024 10:23 AM EDT [facility] LAB BLOOD ORDERABLES Fi nal Result Performing Organization Address [facility]/ZIP Co de Phone Number [facility] [address] [place] [address], [place] [phone] * Mann urine culture tube (09/09/2024 10:08 AM EDT) Extra Tube Hold for add-ons. 09/09/2024 12:02 PM EDT [facility] Comment:Auto resulted. Urine Urine specimen obtained by clean catch procedure / Unknown Non-blood Collection / Unknown 09/09/2024 10:08 AM EDT 09/09/2024 10:08 AM EDT [facility] LAB URINE ORDERABLES Fi nal Result Performing Organization Address [facility]/ZIP Co de Phone Number [facility] [address] [place] [address], [place] [phone] * STRESS ECHOCARDIOGRAM EXERCISE WITH CONTRAST (08/03/2024 9:46 AM EST) BSA 2.03 m2 CV PACS STRESS TR Peak Velocity 2.48 m/s CV PACS STRESS TR Peak Gradient 25 mmHg CV PACS STRESS Target HR 132 bpm CV PACS STRESS Baseline HR 74 bpm CV PACS STRESS Peak HR 132 bpm CV PACS STRESS Estimated workload 6.8 METS CV PACS STRESS Percent HR 85 % CV PACS STRESS Exercise/injec tion duration (min) 4 min CV PACS STRESS Exercise/injec tion duration (sec) 11 sec CV PACS STRESS Max HR Percent 85 % CV PA CS STRESS Baseline SBP 120 mmHg CV PACS STRESS Baseline DBP 64 mmHg CV PACS STRESS Peak SBP 136 mmHg CV PACS STRESS Peak DBP 70 mmHg CV PACS STRESS Rate Pressure Product 17,952.0 mmHg*bpm CV PACS STRESS Anatomical Region Laterality Modality Ultrasound Narrative 08/03/2024 2:47 PM EST ?Exercise stress test was performed. Exercise capacity was average. Normal blood pressure response. ?Post??Stress??Impression: The study is normal. ?Normal wall motion, unchanged from baseline. Left Ventricle Left ventricle cavity size is normal. Wall thickness is normal. Systolic function is low normal with an ejection fraction of 50-55%. There are no regional LV wall motion abnormalities. Study Details Overall the study quality was technically difficult. Definity contrast was given to enhance imaging. Stress Findings A Saurabh protocol stress test was performed. Overall, the patient's exercise capacity was average. Total stress time was 4 min and 11 sec. The test was stopped because the patient experienced fatigue. The patient requested the test to be stopped. Blood pressure demonstrated a normal response. Heart rate demonstrated a normal response. Patient reporting dyspnea and chest tightness at peak exercise which resolved in recovery. ECG 64 year old with past history of HTN and former smoking with complaints of chest pain and shortness of breath. Rule out ischemia. The ECG shows normal sinus rhythm. There were no arrhythmias during stress. There were no arrhythmias during recovery. Artifact noted at peak exercise despite attempts to clear. Early recovery 0.[address] segments in leads II, III, aVF and laterally. Echo Post Stress Left ventricular systolic function improved from baseline. Systolic function is low normal with an ejection fraction of 50-55%. Saurabh protocol stress test to 85% of age-predicted heart rate stopped secondary to fatigue with evidence of mild deconditioning. No ischemic EKG changes no arrhythmias Resting echocardiogram with normal regional wall motion with Definity contrast Post exercise echocardiography with contrast shows no evidence for exercise- induced ischemia at an adequate workload Normal left ventricle diastolic function post-stress. Normal wall motion, unchanged from baseline. Right ventricle cavity appears normal post-stress. Nuclear Measurements The study is normal. Procedure Note Marlene Suazo NP / Leticia Lafleur MD - 08/03/2024 ? ? Exercise stress test was performed. Exercise capacity was average.Normal blood pressure response. ? ? Post??Stress??Impression: The study is normal. ? ? Normal wall motion, unchanged from baseline. Result [facility] Leticia Lafleur MD CV ECHO PROCEDURES Final Resul t * ECG 12 lead (07/17/2024 3:11 PM EST) [facility] Ventricular Rate ECG 82 BPM GEMUSE Atrial Rate 82 BPM GEMUSE P-R Interval 166 ms GEMUSE QRS Duration 88 ms GEMUSE Q-T Interval 392 ms GEMUSE QTc 457 ms GEMUSE P Wave [place] 58 degrees GEMUSE R [place] 93 degrees GEMUSE T [place] 39 degrees GEMUSE ECG Interpretation Normal sinus rhythm Rightward axis Cannot rule out Anterior infarct , age undetermined Abnormal ECG When compared with ECG of 21-JAN-2023 23:45, Questionable change in QRS axis Confirmed by Tahir LAFLEUR, LETICIA ([id number]) on 07/18/2024 6:06:56 PM GEMUSE 07/17/2024 3:11 PM EST 07/18/2024 6:06 PM EST Result [facility] Leticia Lafleur MD ECG ORDERABLES Final Result GEMUSE * Falls Risk Assessment (03/09/2024) [facility] Falls Risk Assessment Abstracted Result [facility] Historical Provider HEALTH MAINTENANCE Final Result * Depression Screening (12/10/2023) [facility] Depression Screening Abstracted Result [facility] Historical Provider HEALTH MAINTENANCE Final Result * Colonoscopy (05/03/2020) [facility] Colonoscopy No Interpretation , Abstracted Anatomical Region Laterality Modality Other Result [facility] Historical Provider HEALTH MAINTENANCE Final Result * Pap Smear (04/03/2018) [facility] Pap smear No Interpretation , Abstracted Result [facility] Historical Provider HEALTH MAINTENANCE Final Result * Hepatitis C Screening (12/24/2012) Hepatitis C Screening Abstracted Historical Provider HEALTH MAINTENANCE Final Result from Last 3 Months or Most Recently Relevant to Health Maintenance Insurance MEDICAID - [place] MEDICARE Care Teams Tool Room Supervisor Relationship Specialty Start Date End Date Pablo Resendiz MD [address] [place] [id number] PCP - General Internal Medicine 07/16/24
--- OUTSIDE RECORDS SUMMARY | 2024-10-13 15:20 | XMS_ITS | Clinical Summary ---
[facility] Organization [facility] Address [address] [id number] Care Team Providers Care Cardiac/Vascular Sonographer Name Role Phone Heraclio Gold MD Primary Care Provider [phone] Allergies Active Allergy Reactions Criticality Noted Date [...] age to complete this topic Care Teams Cardiac/Vascular Sonographer Relationship Specialty Start Date End Date Heraclio Gold MD [address] [place] [address] [phone] PCP - General Internal Medicine 07/07/18
== END 2024-10-13 14:46 | disposition home or self-care (01) ==
LOC: HO.HOS 14:00
PROVIDERS: PCP Internal Medicine; Visit Provider Orthopaedic Surgery
DX: M25.511 Pain in right shoulder (principal); M54.2 Cervicalgia
CPT/HCPCS: 99203; G2211

== ENCOUNTER → 2024-10-13 14:09 | Outpatient (BNV) | payer MEDICARE, MEDICAID, SELFPAY | PROVIDERS: Visit Provider Radiology Diagnostic Radiology | DX: M25.511 Pain in right shoulder (principal) | CPT/HCPCS: 73030 ==

== ENCOUNTER 2024-10-16 20:05 | Outpatient (REF) | payer MEDICARE, MEDICAID, SELFPAY ==
--- NOTE | ~2024-10-16 | MR_ITS ---
EXAMINATION: MR CERVICAL SPINE WITHOUT CONTRAST CLINICAL INFORMATION: Cervicalgia. COMPARISON: None available. TECHNIQUE: MRI of the cervical spine was obtained using routine sequences without contrast. FINDINGS: Craniocervical junction is intact. No bone marrow STIR signal abnormality. Multilevel marginal osteophyte formation and disc desiccation C4 C7. No gross malalignment. Cervical spinal cord signal is normal. C2-3: Broad-based disc osteophyte complex formation. Left facet joint hypertrophy. No compression upon neural elements. C3-4: Broad-based disc osteophyte consummation. Left neuroforamina narrowing. No cord compression. Facet joint hypertrophy bilaterally. C4-5: Broad-based disc osteophyte complex formation. No cord compression. No neuroforamina stenosis. C6-7: Broad-based disc osteophyte complex formation. Ligamentum flavum hypertrophy. No cord compression. No neuroforamina stenosis. C6-7: Left subarticular disc osteophyte compresses formation resulting in ventral deformity of the thecal sac. No cord compression. No neuroforamina stenosis. C7-T1: No disc herniation. No neuroforamina stenosis. No prevertebral compartment hematoma, mass or fluid collection. Flow-void signal within the main vessels is normal. Codominant vertebral arteries. Retropharyngeal trajectory right ICA. Vascular morphology pattern hypointense T2 signal in the jorge which could be artifactual versus vascular abnormality. MR/MR cervical spine wo con IMPRESSION: Multilevel cervical spondylosis C3-4 to C6-7 more conspicuous at C5-6 without cord compression, cord edema and or myelopathy. Electronically signed by: Henrique Hand MD 10/19/2024 09:57 AM EDT
--- OUTSIDE RECORDS SUMMARY | 2024-10-16 20:07 | XMS_ITS | Clinical Summary ---
Author Organization [facility] Address [address] [place] [address] Phone Care Team Providers Care Electronics Tech Name Role Phone Pablo Resendiz MD Primary Care Provider [phone] Allergies Active Allergy Reactions Criticality Noted Date Comments Cephalexin Monohydrate 09/06/2005 Lisinopril 08/01/2021 Throat Clearing Oxycodone Hcl Itching,Nausea And Vomiting Medium 04/03/2007 [facility] 08/11/2013 Medications albuterol 2.5 mg [...] AREA EVERY DAY REMOVE BEFORE BEDTIME 05/22/20 Active montelukast (SINGULAIR) 10 mg tablet Take [...] 30 each 5 05/24/20 24 025 Active hydroCHLOROthi azide (MICROZIDE) 12.5 mg capsule TAKE 1 CAPSULE BY MOUTH EVERY DAY 90 capsule 1 07/20/19 25 Active zolpidem (AMBIEN) 5 mg tablet Take 1 tablet (5 mg total) by mouth at bedtime. at bedtime for sleep Max Daily Amount: 5 mg 28 tablet 09/22/19 25 Active tiZANidine (ZANAFLEX) 4 mg tablet Take 1 tablet (4 mg total) by mouth at bedtime as needed for muscle spasms. 90 tablet 1 10/16/19 25 Active ALPRAZolam (XANAX) 1 mg tablet Take 1 tablet (1 mg total) by mouth at bedtime as needed for anxiety. 28 tablet 10/16/19 25 Active tiZANidine (ZANAFLEX) 4 mg tablet TAKE 1 TABLET BY MOUTH AT BEDTIME NEEDED FOR MUSCLE SPASMS. 90 tablet 1 07/15/19 25 025 Discontinu ed(Reorder ) zolpidem (AMBIEN) 5 mg tablet Take 1 tablet (5 mg total) by mouth at bedtime. at bedtime for sleep Max Daily Amount: 5 mg 28 tablet 08/25/19 25 025 Discontinu ed(Reorder ) ALPRAZolam (XANAX) 1 mg tablet Take 1 tablet (1 mg total) by mouth at bedtime as needed for anxiety. 28 tablet 09/15/19 25 025 Discontinu ed(Reorder ) amoxicillin-cl avulanate [...] neck pain 03/06/2021 Overview (05/20/2024): Follows with [facility]. Lumbar radiculopathy 03/06/2021 Overview (05/20/2024): Follows with [facility]. Hypertension 08/17/2020 Obesity (BMI 30.0-34.9) 08/17/2020 Subacromial [...] Overview (05/20/2024): Dr. Gracia Asthma-COPD overlap syndrome (CMS/HCC V24, CMS/H CC V28) 10/14/2007 Hemorrhage of gastrointestinal tract 04/03/2007 Overview (05/20/2024): Neg cn to 25 cm 04/03/2007. BE negative 04/17/2007, [facility]. Consider flex sig 2011. IMO update Allergic rhinitis 09/06/2005 Encounters Date Type Department Care Team Description 09/18/2024 Telephone Adult Medicine [address] [address] Marcie Ledbetter [place] URINE RESULTS 09/08/2024 5:00 PM EDT Office Visit Adult Medicine [address] [address] Peggy Moore PA Hypertension, unspecified type (Primary Dx); Dysuria; Foul smelling urine; Urinary frequency; Encounter for long-term (current) use of medications; Mixed hyperlipidemia; Screening for diabetes mellitus; Anxiety; Insomnia, unspecified type; Multiple sclerosis (CMS/HCC V24, CMS/HCC V28); Migraine without status migrainosus, not intractable, unspecified migraine type 08/04/2024 Telephone [facility] [address] [place] [address] Sajan Bryan MD Results (Stress Echo ) 08/03/2024 9:30 AM EST Ancillary Procedure [facility] [address] [place] [address] Chest pain, unspecified type from Last 3 Months Immunizations Name Administration [...] TUBAL LIGATION OTHER SURGICAL HISTORY 2002 PROCEDURE: AL HYSTEROSCOPY ENDOMETRIAL ABLATION FLEXIBLE SIGMOIDOSCOPY 04/03/2007 PROCEDURE: AL SIGMOIDOSCOPY FLX DX W/COLLJ SPEC BR/WA IF PFRMD; COMMENT: Neg cn to 25 cm; BE wnl. CHOLECYSTECTOMY 04/30/2008 PROCEDURE: LAPAROSCOPY, CHOLECYSTECTOMY OTHER SURGICAL HISTORY 04/2008 PROCEDURE: HISTORICAL D&C ESOPHAGOGASTRODUODENOSCOPY 04/25/2009 PROCEDURE: AL EGD TRANSORAL BIOPSY SINGLE/MULTIPLE; COMMENT: gastritis: Minimal [...] BLADDER SUSPENSION OTHER SURGICAL HISTORY Left PROCEDURE: AL STAB PHLEBT VARICOSE VEINS 1 XTR > [...] 9:46 AM EST Chest pain, unspecified type FALLS RISK ASSESSMENT Routine 03/09/2024 DEPRESSION SCREENING Routine 12/10/2023 HM COLONOSCOPY Routine 05/03/2020 HM PAP SMEAR Routine 04/03/2018 HEPATITIS C SCREENING Routine 12/24/2012 from Last 3 Months or Most Recently Relevant to Health Maintenance Results * (ABNORMAL) Urinalysis with reflex microscopic and culture (09/09/2024 10:23 AM EDT) Specific Miller Urine 1.021 1.003 - 1.030 LAB URINALYSIS - AUTOMATED METHOD 09/09/2024 12:11 PM [facility] pH, Urine 7.5 5.0 - 8.0 pH LAB URINALYSIS - AUTOMATED METHOD 09/09/2024 12:11 PM [facility] Leukocytes, Urine Large(A) Negative LAB URINALYSIS - AUTOMATED METHOD 09/09/2024 12:11 PM [facility] Nitrite, Urine Positive(A) Negative LAB URINALYSIS - AUTOMATED METHOD 09/09/2024 12:11 PM [facility] Protein, Urine 30(A) <=Trace mg/dL LAB URINALYSIS - AUTOMATED METHOD 09/09/2024 12:11 PM [facility] Glucose, Urine Negative Negative mg/dL LAB URINALYSIS - AUTOMATED METHOD 09/09/2024 12:11 PM [facility] Ketones, Urine Trace(A) Negative mg/dL LAB URINALYSIS - AUTOMATED METHOD 09/09/2024 12:11 PM [facility] Urobilinogen , Urine 0.2 0.2 - 1.0 mg/dL LAB URINALYSIS - AUTOMATED METHOD 09/09/2024 12:11 PM [facility] Bilirubin, Urine Negative Negative LAB URINALYSIS - AUTOMATED METHOD 09/09/2024 12:11 PM [facility] Blood, Urine Trace(A) Negative LAB URINALYSIS - AUTOMATED METHOD 09/09/2024 12:11 PM [facility] RBC, Urine 8.7(H) 0 - 4 /HPF LAB URINALYSIS - AUTOMATED METHOD 09/09/2024 12:11 PM EDT [facility] WBC, Urine 825.8(H) 0 - 4 /HPF LAB URINALYSIS - AUTOMATED METHOD 09/09/2024 12:11 PM [facility] Squamous Epithelial, Urine 61(H) 0 - 60 /LPF LAB URINALYSIS - AUTOMATED METHOD 09/09/2024 12:11 PM EDT [facility] Bacteria, Urine Moderate(A) Negative /HPF LAB URINALYSIS - AUTOMATED METHOD [facility] Hyaline Casts, Urine 6.4(H) 0 - 3 /LPF LAB URINALYSIS - AUTOMATED METHOD 09/09/2024 12:11 PM [facility] Urine Urine specimen obtained by clean catch procedure / Unknown Non-blood Collection / Unknown 09/09/2024 10:23 AM EDT 09/09/2024 10:23 AM EDT Peggy MONREAL LAB URINE ORDERABLES nal Result [facility] [address] [place] [address], [place] [phone] * (ABNORMAL) Lipid panel with reflex to direct LDL (09/09/2024 10:23 AM EDT) Cholesterol 192 0 - 200 mg/dL LAB CHEMISTRY METHOD 09/09/2024 7:33 PM EDT [facility] Triglycerides 282(H) 0 - 150 mg/dL LAB CHEMISTRY METHOD [facility]24 [facility] HDL 59 >=40 mg/dL LAB CHEMISTRY METHOD 09/09/2024 7:33 PM T [facility] LDL Calculated 77 0 - 100 mg/dL LAB CHEMISTRY METHOD 09/09/2024 7:33 PM T [facility] VLDL Cholesterol Edilberto 56.4 mg/dL LAB CHEMISTRY METHOD 09/09/2024 7:33 PM EDT [facility] Non HDL Chol. (LDL+VLDL) 133 <145 mg/dL LAB CHEMISTRY METHOD 09/09/2024 7:33 PM EDT [facility] Chol/HDL Ratio 3.3 0.0 - 4.4 LAB CHEMISTRY METHOD 09/09/2024 7:33 PM EDT [facility] Blood Venous blood specimen / Unknown Venipuncture / Unknown 09/09/2024 10:23 AM EDT 09/09/2024 10:23 AM EDT Peggy MONREAL LAB BLOOD ORDERABLES Fi nal Result [facility] [address] [place] [address], * (ABNORMAL) Drug abuse screen 8a panel, urine (09/09/2024 10:23 AM EDT) Amphetamine Screen, Ur Negative Negative LAB CHEMISTRY METHOD 5 10:33 PM EDT [facility] Comment:Certain OTC medicati ons containing ephedrine, phenylephrine, pseudoephedrine and phenylpropanolamine can cause false positive results. Barbiturate Screen, Ur Negative Negative LAB CHEMISTRY METHOD 5 10:33 PM EDT [facility] Benzodiazepine Screen, Ur Positive(A ) Negative LAB CHEMISTRY METHOD 5 10:33 PM EDT [facility] Cocaine Screen, Ur Negative Negative LAB CHEMISTRY METHOD 5 10:33 PM EDT [facility] Opiate Screen, Ur Negative Negative LAB CHEMISTRY METHOD 5 10:33 PM EDT [facility] Cannabinoid (THC) Screen, Ur Negative Negative LAB CHEMISTRY METHOD 5 10:33 PM EDT [facility] Comment:Specimens from patie nts taking pantoprazole sodium (Protonix) have been shown to produce false positive results. Oxycodone Screen, Ur Negative Negative LAB CHEMISTRY METHOD 5 10:33 PM EDT [facility] Fentanyl, Ur Negative Negative LAB CHEMISTRY METHOD 5 10:33 PM EDT [facility] Urine Urine specimen obtained by clean catch procedure / Unknown Non-blood Collection / Unknown 09/09/2024 10:23 AM EDT 09/09/2024 10:23 AM EDT Narrative [facility] - 09/09/2024 10:33 PM [...] CONFIRMATION DONE UPON REQUEST ONLY* Peggy Moore [place] LAB URINE ORDERABLES Fi nal Result [facility] [address] [place] [address], * (ABNORMAL) Culture urine (09/09/2024 10:23 AM EDT) Culture, Urine >100,000 CFU/mL Proteus mirabilis(A ) TERESA 09/11/2024 10:10 AM EDT [facility] Comment: Edited result: Previously [...] Susceptible Peggy MONREAL LAB MICROBIOLOGY - GENE RAL ORDERABLES Final Result [facility] [address] [place] [address], * Hemoglobin A1c (09/09/2024 10:23 AM EDT) Hemoglobin A1C 5.7 <6.5 % LAB CHEMISTRY METHOD 09/09/2024 2:05 PM EDT [facility] Mean Bld Glu Estim. 117 mg/dL LAB CHEMISTRY METHOD 09/09/2024 2:05 PM EDT [facility] Blood Venous blood specimen / Unknown Venipuncture / Unknown 09/09/2024 10:23 AM EDT 09/09/2024 10:23 AM EDT Peggy MONREAL LAB BLOOD ORDERABLES Fi nal Result [facility] [address] [place] [address], * (ABNORMAL) Basic metabolic panel (09/09/2024 10:23 AM EDT) Sodium 135 133 - 145 mmol/L LAB CHEMISTRY METHOD 09/09/2024 7:20 PM [facility] Potassium 4.2 3.5 - 5.5 mmol/L LAB CHEMISTRY METHOD 09/09/2024 7:20 PM [facility] Chloride 101 96 - 110 mmol/L LAB CHEMISTRY METHOD 09/09/2024 7:20 PM [facility] CO2 26 21 - 32 mmol/L LAB CHEMISTRY METHOD 09/09/2024 7:20 PM [facility] Anion Gap 8 3 - 11 LAB CHEMISTRY METHOD 09/09/2024 7:20 PM [facility] Glucose 117(H) 70 - 100 mg/dL LAB CHEMISTRY METHOD 09/09/2024 7:20 PM [facility] BUN 18 5 - 25 mg/dL LAB CHEMISTRY METHOD 09/09/2024 7:20 PM [facility] Creatinine 0.92 0.50 - 1.10 mg/dL LAB CHEMISTRY METHOD 09/09/2024 7:20 PM [facility] eGFR 69 >=60 mL/min/1. 73m2 LAB CHEMISTRY METHOD 09/09/2024 7:20 PM [facility] Comment:Calculation based on the??Chronic Kidney Disease Epidemiology Collaboration (CKD-EPI) equation refit??without adjustment for race. BUN/Creatinine Ratio 19.6 LAB CHEMISTRY METHOD 09/09/2024 7:20 PM EDT [facility] Calcium 9.6 8.5 - 10.5 mg/dL LAB CHEMISTRY METHOD 09/09/2024 7:20 PM EDT [facility] Blood Venous blood specimen / Unknown Venipuncture / Unknown 09/09/2024 10:23 AM EDT 09/09/2024 10:23 AM EDT [facility] LAB BLOOD ORDERABLES Fi nal Result Performing Organization Address City/[facility]/ZIP Co de Phone Number [facility] [address] [place] [address], [place] [phone] * Mann urine culture tube (09/09/2024 10:08 AM EDT) Extra Tube Hold for add-ons. 09/09/2024 12:02 PM EDT [facility] Comment:Auto resulted. Urine Urine specimen obtained by clean catch procedure / Unknown Non-blood Collection / Unknown 09/09/2024 10:08 AM EDT 09/09/2024 10:08 AM EDT [facility] LAB URINE ORDERABLES Fi nal Result Performing Organization Address City/[facility]/ZIP Co de Phone Number [facility] [address] [place] [address], [place] [phone] * STRESS ECHOCARDIOGRAM EXERCISE WITH CONTRAST (08/03/2024 [...] normal. Procedure Note Marlene Suazo NP / Sajan Bryan MD - 08/03/2024 ? ? Exercise stress test was performed. Exercise capacity was average.Normal blood pressure response. ? ? Post??Stress??Impression: The study is normal. ? ? Normal wall motion, unchanged from baseline. Sajan Bryan MD CV ECHO PROCEDURES Final Resul t * Falls Risk Assessment (03/09/2024) [facility] Falls Risk Assessment Abstracted Result [facility] Historical Provider HEALTH MAINTENANCE Final Result * Depression Screening (12/10/2023) [facility] Depression Screening Abstracted Result [facility] Provider HEALTH MAINTENANCE Final Result * Colonoscopy (05/03/2020) [facility] Colonoscopy No Interpretation , Abstracted Anatomical Region Laterality Modality Other Result [facility] Provider HEALTH MAINTENANCE Final Result * Pap Smear (04/03/2018) [facility] Pap smear No Interpretation , Abstracted [facility] Provider HEALTH MAINTENANCE Final Result * Hepatitis C Screening (12/24/2012) [facility] Hepatitis C Screening Abstracted Result [facility] Provider HEALTH MAINTENANCE Final Result from Last 3 Months or Most Recently Relevant to Health Maintenance Insurance MEDICA[place] - [place] MEDICARE Care Teams Electronics Tech Relationship Specialty Start Date End Date Pablo Resendiz MD [address] [place] [id number] PCP - General Internal Medicine 07/16/24
== END 2024-10-16 20:06 | disposition home or self-care (01) ==
LOC: HO.MRI 20:05
PROVIDERS: PCP Internal Medicine; Visit Provider Orthopaedic Surgery
DX: M54.2 Cervicalgia (principal)
CPT/HCPCS: 72141

== ENCOUNTER → 2024-10-16 20:11 | Outpatient (BNV) | payer MEDICARE, MEDICAID, SELFPAY | PROVIDERS: PCP Internal Medicine; Visit Provider Radiology Diagnostic Radiology | DX: M54.2 Cervicalgia (principal) | CPT/HCPCS: 72141 ==

== ENCOUNTER 2024-10-28 20:03 | Outpatient (REF) | payer MEDICARE, MEDICAID, SELFPAY ==
--- NOTE | ~2024-10-28 | MR_ITS ---
CLINICAL HISTORY: M25.311 - Other instability, right shoulder MR right shoulder without gadolinium Comparison: 10/13/2024 Findings: No acute fractures. No pathologic bone lesions. Widening of the AC joint is again noted possibly from previous trauma or surgery. There are changes of osteoarthritis in the glenohumeral joint.. Type II acromion. There is a large subdeltoid bursal effusion. The fluid extends through the AC joint. There is small glenohumeral joint effusion.. No rotator cuff tears. The long head of biceps is intact. No tears of the glenoid labrum. IMPRESSION: 1. Subacromial bursal effusion extending through AC joint. 2. Glenohumeral osteoarthritis with joint effusion. This document has been electronically signed by: Justice Christie MD on 10/30/2024 08:55:09
== END 2024-10-28 20:04 | disposition home or self-care (01) ==
LOC: HO.MRI 20:03
PROVIDERS: PCP Internal Medicine; Visit Provider Orthopaedic Surgery
DX: M25.311 Other instability, right shoulder (principal)
CPT/HCPCS: 73221

== ENCOUNTER → 2024-10-28 20:09 | Outpatient (BNV) | payer MEDICARE, MEDICAID, SELFPAY | PROVIDERS: PCP Internal Medicine; Visit Provider Specialist | DX: M25.411 Effusion, right shoulder (principal) | CPT/HCPCS: 73221 ==

== ENCOUNTER 2024-11-03 11:46 | Outpatient (AMB) | payer MEDICARE, MEDICAID, SELFPAY ==
[2024-11-03 11:50] VITALS: BMI 31.6
--- NOTE | 2024-11-03 11:50 | MHC.OFFVIS ---
Vital Signs 11/03/24 11:50 Height 5 ft 5 in Weight 190 lb BMI 31.6 Intake Visit Reasons: OV- Right shoulder MRI review Intake Note: Ms. Caro is a 64-year-old female who presents with complaints of right shoulder pain. She describes her pain as sharp in nature. She did undergo right shoulder arthroscopic surgery approximately 5 years ago. She got fairly good relief from that surgery initially. Her pain has returned. She has had cortisone injections in the past which gave her fairly good relief. She has tried Tylenol and anti-inflammatory medicines which gave her minimal relief. The patient wishes to hold off on further right shoulder surgery if at all possible. Allergies oxycodone Allergy (Verified 11/03/24 11:51) Nausea sulfamethoxazole [From Bactrim] Allergy (Verified 11/03/24 11:51) Hives trimethoprim [From Bactrim] Allergy (Verified 11/03/24 11:51) Hives Medication List - Last Reconciled 11/03/24 by Eusebio Santana MD amitriptyline 25 mg PO BEDTIME zolpidem 5 mg PO BEDTIME [facility] Social History (Updated 10/13/24 @ 14:21 by JACK Dinh) Current occupation: rt handed Physical Exam Vital Signs: BMI result Body Mass Index 31.6 Const Other: Well-nourished well-developed very friendly female awake alert and oriented x3 in no acute distress Extrem Other: Right shoulder examination shows that the surgical incisions are well healed, no erythema, decreased range of motion when compared to her left shoulder, 4+ out of 5 strength with supraspinatus testing, positive impingement signs, tenderness over her acromioclavicular joint, no instability Office Procedures AMB Joint Injection/Aspiration Joint Injection/Aspiration Primary Site: right shoulder Prep: site was prepped using aseptic technique Injected: 40 mg of, DepoMedrol and 1% plain lidocaine Procedure: The patient tolerated the procedure well Coding 47577 - Large joint Procedure code (CPT) selection complete Results Reviewed Results Reviewed: MRI of the patient's right shoulder shows moderate acromioclavicular joint narrowing, a type 2 acromion, mild to moderate glenohumeral joint degenerative changes Assessment & Plan Assessment & Plan (1) Impingement of right shoulder: Code(s): M25.811 - Other specified joint disorders, right shoulder Category: Medical Plan Ms. Caro presents with right shoulder pain and stiffness due to impingement syndrome, acromioclavicular joint arthritis, glenohumeral joint arthritis and adhesive capsulitis. The risks and benefits of a right shoulder cortisone injection were discussed at length with the patient. The patient wished to proceed. She tolerated the injection well. She will continue with her home stretching program. She will contact me prior to her follow-up appointment in 3 months should any questions or concerns arise. Feel free to call me at any time should questions regarding her orthopedic management arise. I spent 21 minutes in reviewing the patient's records and imaging studies, seeing the patient and documenting in the medical record. Orders: Orders AMB Joint Injection/Aspiration Today M25.811 - Other specified joint disorders, right shoulder Coding Level of Care Code Est Pt Level 3 (05392) Complex EM visit Add On G2211 Diagnoses Impingement of right shoulder M25.811 CPT Codes Coding - 52309 Large joint: 94634 - Large joint ([id number])
--- OUTSIDE RECORDS SUMMARY | 2024-11-03 12:21 | XMS_ITS | Clinical Summary ---
Author Organization [facility] Address [address] [id number] Care Team Providers Care Mandolin Repairer Name Role Phone Heraclio Gold MD Primary Care Provider [phone] Allergies Active Allergy Reactions Criticality Noted Date [...] age to complete this topic Care Teams Mandolin Repairer Relationship Specialty Start Date End Date Heraclio Gold MD [address] [place] [address] [phone] PCP - General Internal Medicine 07/07/18
== END 2024-11-03 12:24 | disposition home or self-care (01) ==
LOC: HO.HOS 11:47
PROVIDERS: PCP Internal Medicine; Visit Provider Orthopaedic Surgery
DX: M25.811 Other specified joint disorders, right shoulder (principal)
CPT/HCPCS: 20610; 99213

== ENCOUNTER → 2024-11-03 11:46 | Outpatient (BNVA) | payer MEDICARE, MEDICAID, SELFPAY | PROVIDERS: PCP Internal Medicine; Visit Provider Orthopaedic Surgery | DX: M25.811 Other specified joint disorders, right shoulder (principal) | CPT/HCPCS: 20610; 99212; J1010; J2003 ==